=== PATIENT | female | born 1995 | race Caucasian/White ===

== ENCOUNTER → 2020-07-12 16:43 | Outpatient (BNVA) | payer MEDICAID, SELFPAY | PROVIDERS: Family Provider Nurse Practitioner Family; PCP Nurse Practitioner Family; Visit Provider Nurse Practitioner Family | DX: Z11.3 Encounter for screening for infections with a predominantly sexual mode of transmission (principal); Z20.2 Contact with and (suspected) exposure to infections with a predominantly sexual mode of transmission; Z68.25 Body mass index [BMI] 25.0-25.9, adult; Z71.89 Other specified counseling | CPT/HCPCS: 86592; 87086; 87491; 87591; 87661; 87806 ==

== ENCOUNTER → 2020-11-13 12:47 | Outpatient (BNVA) | payer MEDICAID, SELFPAY | PROVIDERS: Family Provider Nurse Practitioner Family; PCP Nurse Practitioner Family; Visit Provider Nurse Practitioner | DX: R05 Cough (principal); J06.9 Acute upper respiratory infection, unspecified | CPT/HCPCS: 87400 ==

== ENCOUNTER 2021-09-21 11:45 | Emergency (ER) | payer OTHER, SELFPAY ==
--- NOTE | 2021-09-21 11:56 | US_ITS ---
WS: [id number] TRANSVAGINAL PELVIC ULTRASOUND HISTORY: eval for miscarriage COMPARISON: None available. Uterus: Uterus is anteverted and normal size measuring 8.3 x 4.2 x 5.1 cm. No fibroid or mass. Endometrium: 0.9 cm. Normal endometrium. Right ovary: 4.4 cm x 3.2 cm x 2.1 cm. Normal size and vascularity, no cystic or solid masses. Domina nt follicle. No adnexal mass. Left ovary: 2.8 cm x 1.3 cm x 1.9 cm. Normal size and vascularity, no cystic or solid masses. No free fluid. US/US transvaginal [id number] IMPRESSION: 1. No intrauterine gestation. No endometrial thickening. 2. No free fluid or adnexal masses. 3. If there is a positive beta hCG serial follow-up beta hCG levels are recomm ended and ultrasound if clinically thought necessary.
[2021-09-21 11:58] VITALS: BP 119/74; PULSE 82; RESP 16; TEMP 36.8; O2SAT 100
[2021-09-21 12:38] LABS: Basophils % 0.3 %; Eosinophils # 0.1 10^3/uL (0.0-0.8); Eosinophils % 1.2 %; Hematocrit 43.3 % (37.0-47.0); Hemoglobin 14.3 g/dL (11.5-15.3); Lymphocytes # 1.8 10^3/uL (0.8-4.8); Lymphocytes % 29.7 %; Mean Corpuscular Volume 93.7 fl (81-99); Mean Platelet Volume 11.3 fL (7.4-10.4); Monocytes # 0.4 10^3/uL (0.2-0.9); Neutrophils % 61.5 %; Nucleated Red Blood Cells % 0 %; Platelet Count 239 10^3/cmm (130-400); Red Blood Count 4.62 10^6/uL (4.1-5.3)
--- NOTE | 2021-09-21 12:59 | ED_ITS ---
HPI - General Adult General: Chief complaint: Vaginal Bleeding Stated complaint: 6 WKS PREG, THINKS HAVING MISCARRIAGE Time Seen by Provider: 09/21/21 12:05 History of Present Illness: HPI narrative: Patient is a 25-year-old female with G3, P2 at 6w1d by LMP presenting to the emergency room with 2 days of vaginal spotting. Patient denies heavy bleeding. Patient states that she has not had any pelvic cramps. Denies any passage of clots or gush of fluid. Patient denies any regular contraction, urinary symptoms, nausea vomiting, abdominal pain. She is has yet to establish care with Dr. Miranda but because of the bleeding, decided come to the emergency room. Denies any chest pain, shortness breath palpitation, fever/chills, headache or focal neurological deficits. Onset:2 days ago Duration:2 days Location:home Severity:moderate Review of Systems Narrative: Constitutional: No fever, no chills. HEENT: No vision changes CV: No chest pain, no palpitations PULM: no cough, no dyspnea. GI: No abdominal pain, no N/V/D. : No dysuria, +vaginal bleeding MSKEL: No muscle pain SKIN: No new rashes, no lesions. NEURO: No headache, no focal weakness. HEME: No visible bruises PSYCH: Normal mood PFSH ED PFSH: Medical History (Updated 09/21/21 @ 13:38 by Javier Morillo MD) Seizure disorder Surgical History No pertinent past surgical history Family History (Updated 09/21/21 @ 07:47 by Raven Juarez) Family/Other Cancer Diabetes Stroke Denies family history of Colon cancer Ovarian cancer Heart disease Hypercholesteremia Breast cancer Hypertension Uterine cancer Thyroid disease Social History (Updated 09/21/21 @ 07:48 by Raven Juarez) Smoking and tobacco status: current every day smoker Second hand smoke exposure: Yes Alcohol intake: never Lives independently: Yes Marital status: History of recent travel: No Special tabitha needs: No Agree to transfusion: Yes Physical Exam Narrative: EXAM NARRATIVE: Head: Atraumatic Eyes: PERRL, conjunctiva without injection ENT: Mucous membrane moist NECK: Supple, ROM intact LUNGS: LCTAB, no crackles/rhonchi CV: RRR ABDOMEN: Soft, nontender in all quadrants EXTREMITY: Normal ROM SKIN: No rash or erythema NEURO: Awake and alert, no focal motor deficits PSYCH: Normal mood and affect : Exam supervised by _ External genitalia wnl. No erythema around cervical os, os closed, no discharge, no bleeding. No CMT, no adnexal tenderness. Course Vital Signs: Vital signs: Vital Signs Temperature 98.3 F 09/21/21 11:58 Pulse Rate 87 09/21/21 15:38 Respiratory Rate 16 09/21/21 15:38 Blood Pressure 118/76 09/21/21 15:38 Pulse Oximetry 99 09/21/21 15:38 MDM - General Adult MDM Narrative: Medical decision making narrative: Patient is presenting to the emergency room with new onset of vaginal bleeding x2 days. Exam, patient is hemodynamically stable. Pubic symptoms showing signs of brisk bleeding. Cervical os was not visualized. Patient appears to be stable today. Beta hCG of 111. US does not show any IUP. No signs of ectopic . On exam most consistent with possible incomplete/missed . This patient was seen the day prior to , and Dr. Miranda would not be in the office. Have given patient strict return precaution in 48 to 72 hours for repeat beta hCG check to ensure that her beta-hCG not going up. Disposition: Discharge. Patient counseled regarding diagnostic impression, treatment plan. Patient given ED strict return precautions to return for continuation, worsening, or development of new symptoms. Please come back in 24- 48 hrs. Lab Data: Labs: Lab Results 09/21/21 09/21/21 09/21/21 12:20 12:20 12:41 WBC 6.0 10^3/uL 10^3/ uL (4.0-10.0) RBC 4.62 10^6/uL 10^6 /uL (4.1-5.3) Hgb 14.3 g/dL g/dL (11.5-15.3) Hct 43.3 % % (37.0-47.0) MCV 93.7 fl fl (81-99) MCH 31.0 pg pg (28.0-34.0) MCHC 33.0 g/dL g/dL (30.0-36.0) RDW 12.0 % L % (12.1-15.1) Plt Count 239 10^3/cmm 10^3 /cmm (130-400) MPV 11.3 fL H fL (7.4-10.4) Neut % (Auto) 61.5 % % Lymph % (Auto) 29.7 % % [place] % (Auto) 7.0 % % Eos % (Auto) 1.2 % % Baso % (Auto) 0.3 % % Neut # (Auto) 3.70 10^3/uL 10^3 /uL (1.8-7.7) Lymph # (Auto) 1.8 10^3/uL 10^3/ uL (0.8-4.8) [place] # (Auto) 0.4 10^3/uL 10^3/ uL (0.2-0.9) Eos # (Auto) 0.1 10^3/uL 10^3/ uL (0.0-0.8) Baso # (Auto) 0.0 10^3/uL 10^3/ uL (0.0-0.1) Nucleated RBC % (a uto) 0 % % Nucleated RBCs # 0.0 /100WBC /100W BC Sodium 136 mmol/L mmol/L (136-145) Potassium 3.8 mmol/L mmol/L (3.5-5.1) Chloride 103 mmol/L mmol/L (98-107) Carbon Dioxide 21 mmol/L L mmol/ L (22-29) Anion Gap 15.8 (5-19) BUN 8 mg/dL mg/dL (6-20) Creatinine 0.6 mg/dL mg/dL (0.5-0.9) GFR Calculation 123.9 mL/min mL/m in (90-130) Glucose 87 mg/dL mg/dL (65-115) Calculated Osmolal ity 280 mOsm/kg L mOs m/kg (285-295) Calcium 8.8 mg/dL mg/dL (8.5-10.5) Total Bilirubin 0.2 mg/dL mg/dL (0.15-1.2) AST 14 U/L U/L (0-32) ALT 16 U/L U/L (0-33) Alkaline Phosphata se 75 IU/L IU/L (35-105) Total Protein 7.1 g/dL g/dL (6.6-8.7) Albumin 4.4 g/dL g/dL (3.5-5.2) Globulin 2.7 g/dL g/dL (1.3-4.6) HCG, Qual Ser , Blas i-Qnt 111.70 mIU/mL mIU /mL Urine Color Urine Appearance Urine pH Ur Specific Gravit y Urine Protein Urine Glucose (UA) Urine Ketones Urine Blood Urine Nitrate Urine Bilirubin Urine Urobilinogen Ur Leukocyte Eva ase Urine RBC Urine WBC Ur Squamous Epith Cells Amorphous Sediment Urine Bacteria Urine Mucus Blood Type A Positive Rho(D) Type Positive 09/21/21 09/21/21 14:05 14:05 WBC RBC Hgb Hct MCV MCH MCHC RDW Plt Count MPV Neut % (Auto) Lymph % (Auto) [place] % (Auto) Eos % (Auto) Baso % (Auto) Neut # (Auto) Lymph # (Auto) [place] # (Auto) Eos # (Auto) Baso # (Auto) Nucleated RBC % (a uto) Nucleated RBCs # Sodium Potassium Chloride Carbon Dioxide Anion Gap BUN Creatinine GFR Calculation Glucose Calculated Osmolal ity Calcium Total Bilirubin AST ALT Alkaline Phosphata se Total Protein Albumin Globulin HCG, Qual Positive H (Negative) Ser , Blas i-Qnt Urine Color [place] (Yellow) Urine Appearance Sl hazy (CLEAR) Urine pH 5 (5-7) Ur Specific Gravit y 1.010 (1.005-1.030) Urine Protein Neg (Negative) Urine Glucose (UA) Norm (Normal) Urine Ketones Negative (Negative) Urine Blood 3+ H (Negative) Urine Nitrate Negative (Negative) Urine Bilirubin Neg (Negative) Urine Urobilinogen Norm mg/dL mg/dL (Negative) Ur Leukocyte Eva ase Negative (Negative) Urine RBC 25-40 /hpf H /hpf (0-2) Urine WBC 0-4 /hpf H /hpf (0-5) Ur Squamous Epith Cells 5-10 /hpf H /hpf (0-5) Amorphous Sediment Not Reportable Urine Bacteria 1+ /hpf H /hpf (NONE) Urine Mucus Trace /hpf /hpf Blood Type Rho(D) Type Imaging Data^: Other Imaging: Radiologist's impression: [address] [id number] ReportSigned Patient: Max Tinsley #: [id number]: 1995Acct#:[id number]/Sex: 25 / FADM Date: 09/21/21Loc: ERRoom/Bed:Attending Dr: Ordering Provider/Ordering MD: Javier Morillo MD Date of Service: 09/21/21 Procedure(s): US transvaginal [id number] Accession Number(s): [id number] Report Number: [id number] WS: [id number] TRANSVAGINAL PELVIC ULTRASOUND HISTORY: eval for miscarriage COMPARISON: None available. Uterus: Uterus is anteverted and normal size measuring 8.3 x 4.2 x 5.1 cm. No fibroid or mass. Endometrium: 0.9 cm. Normal endometrium. Right ovary: 4.4 cm x 3.2 cm x 2.1 cm. Normal size and vascularity, no cystic or solid masses. Dominant follicle. No adnexal mass. Left ovary: 2.8 cm x 1.3 cm x 1.9 cm. Normal size and vascularity, no cystic or solid masses. No free fluid. US/US transvaginal [id number] IMPRESSION: 1. No intrauterine gestation. No endometrial thickening. 2. No free fluid or adnexal masses. 3. If there is a positive beta hCG serial follow-up beta hCG levels are recommended and ultrasound if clinically thought necessary. Dictated By:Manasa Morillo DOSigned By:Manasa Morillo DOSigned Date/Time:09/21/21 1555DD/ 52 Discharge Plan Discharge Patient Disposition: Home Clinical Impression: , threatened, Vaginal bleeding Condition: Stable Prescriptions: No Action KEPPRA PO RF: 0 fluticasone propionate 50 mcg/actuation spray,suspension 2 spray intranasal DAILY Qty: 9.9 RF: 0 Discharge Orders: Discharge ED (Routine); Ordered 09/21/21 Ordered By: Javier Morillo Referrals: Sarah Gonzáles APN [Primary Care Provider] - Discharge Diet: Advance as tolerated Discharge Activity: Resume usual activity Patient Instructions: Threatened Miscarriage (ED) Activity Restrictions/Additional Instructions: Please come back in 48-72 hrs to repeat the bHCG. Coding Level of Care Code ED Marketing Account Executive for Chg Honey
[2021-09-21 13:21] LABS: Alanine Aminotransferase 16 U/L (0-33); Albumin Level 4.4 g/dL (3.5-5.2); Alkaline Phosphatase 75 IU/L (35-105); Anion Gap 15.8 (5-19); Aspartate Amino Transferase 14 U/L (0-32); Blood Urea Nitrogen 8 mg/dL (6-20); Calcium 8.8 mg/dL (8.5-10.5); Carbon Dioxide 21 mmol/L (22-29); Chloride 103 mmol/L (98-107); Globulin 2.7 g/dL (1.3-4.6); Glomerular Filtration Rate 123.9 mL/min (90-130); Glucose 87 mg/dL (65-115); Osmolality Calculated 280 mOsm/kg (285-295); Potassium 3.8 mmol/L (3.5-5.1); Sodium 136 mmol/L (136-145); Total Bilirubin 0.2 mg/dL (0.15-1.2); Total Protein 7.1 g/dL (6.6-8.7)
[2021-09-21 14:09] VITALS: BP 110/69; PULSE 86; RESP 14; O2SAT 96
[2021-09-21 14:16] LABS: HCG Qualitative Urine. Positive (Negative)
[2021-09-21 14:39] LABS: Add Urine Microscopic? YES; Bilirubin Urine Neg (Negative); Blood Urine 3+ (Negative); Glucose Urine UA Norm (Normal); Ketones Urine Negative (Negative); Leukocyte Esterase Urine Negative (Negative); Nitrate Urine Negative (Negative); Protein Urine Neg (Negative); Urine Appearance SL Hazy (CLEAR); Urine Color Amber (Yellow); Urobilinogen Urine Norm (Negative); pH Urine 5 (5-7)
[2021-09-21 14:53] VITALS: BP 110/65; RESP 12
[2021-09-21 15:04] LABS: Add Urine Culture? Yes; Bacteria Urine 1+ /hpf; Mucus Urine TRACE /hpf; RBC Urine 25-40 /hpf (0-2); WBC Urine 0-4 /hpf (0-5)
[2021-09-21 15:38] VITALS: BP 118/76; PULSE 87; RESP 16; O2SAT 99
== END 2021-09-21 15:35 | disposition home or self-care (01) ==
PROVIDERS: Physician Assistant; Emergency Provider Emergency Medicine; PCP Nurse Practitioner Family
DX: O20.0 Threatened abortion (principal); N93.9 Abnormal uterine and vaginal bleeding, unspecified; F17.210 Nicotine dependence, cigarettes, uncomplicated; R56.9 Unspecified convulsions; Z3A.01 Less than 8 weeks gestation of pregnancy
CPT/HCPCS: 76830; 80053; 81001; 81025; 84702; 85025; 86900; 87086; 93976; 99283

== ENCOUNTER 2022-07-07 21:32 | Outpatient (CLI) | payer OTHER, SELFPAY ==
[2022-07-07] VITALS (7 sets, daily range): BP systolic 110–121; BP diastolic 56–72; PULSE 86–91; RESP 16; TEMP 36.1; BMI 26.6
--- NOTE | 2022-07-07 23:22 | P.TNLD_ITS ---
OB L&D Triage Visit Information: Date of evaluation: 07/07/22 Comments/Additional reason(s) for visit: Max is a 26-year-old with an IUP~24 weeks. She receives medical care in [facility] with her ambulance operations supervisor however plans to transfer care to OB providers here in [facility] because she did like to deliver at this hospital. She lives approximately 30 minutes from this location. Today she presented because she noticed increased discharge today. Describes discharge as yellow and creamy. She has no vaginal pruritus and she has not noticed any vaginal odor. She is sexually active and partners present. Denies vaginal bleeding, denies loss of fluid, denies uterine contractions, denies painful urination, denies headache, denies right upper quadrant pain, denies visual changes Evaluation: Cervical dilation (cm): 0 (Sterile spec exam: Thick closed cervix; negative pool; no blood in the vault, creamy odorless vaginal discharge, culture collected) Vital signs: Vital Signs - 24 hr 07/07/22 21:41 07/07/22 21:44 07/07/22 22:06 Temperature 97.0 F L Pulse Rate 90 91 Blood Pressure 110/57 119/56 07/07/22 22:26 07/07/22 22:46 Temperature Pulse Rate 86 88 Blood Pressure 121/57 116/72 Final Diagnosis Final Diagnosis (1) 24 weeks gestation of : Status: Acute Code(s): Z3A.24 - 24 weeks gestation of (2) Vaginal discharge during in second trimester: Plan: * Hospital to contact patient with vaginitis culture result after it is run tomorrow. * Will have [facility] EMPLOYMENT SERVICES DIRECTOR call the patient to establish care and obtain records on Sunday. * Discharge to home with ROM precautions, labor precautions, and preeclampsia precautions. Status: Acute Code(s): O26.892 - Other specified related conditions, second trimester; N89.8 - Other specified noninflammatory disorders of vagina Coding Level of Care Code Acute Experimental Display Builder for Chg Fwd Diagnoses 24 weeks gestation of Z3A.24 Vaginal discharge during in second trimester O26.892; N89.8
== END 2022-07-07 23:15 | disposition home or self-care (01) ==
LOC: OPOB 21:33 → OBGYN 21:37
PROVIDERS: PCP Nurse Practitioner Family; Visit Provider Obstetrics & Gynecology
DX: O26.892 Other specified pregnancy related conditions, second trimester (principal); N89.8 Other specified noninflammatory disorders of vagina; Z3A.24 24 weeks gestation of pregnancy
CPT/HCPCS: 87491; 87591; 87661; 99211

== ENCOUNTER 2022-07-27 21:02 | Emergency (ER) | payer BC, MEDICAID, SELFPAY ==
[2022-07-27 21:11] VITALS: BP 107/72; PULSE 92; RESP 16; TEMP 36.2; O2SAT 100
--- NOTE | 2022-07-27 21:18 | ED_ITS ---
HPI - Animal Bite General: Chief Complaint: Animal Bite Stated Complaint: Spider Bite Time Seen by Provider: 07/27/22 21:14 Source: patient Mode of arrival: ambulatory Limitations: no limitations History of Present Illness: 26-year-old female who states she had noticed a small abscess to her left ankle today she does have a 1 to 2 cm abscess to the left ankle states its painful denies any drainage has no redness no fever denies any worsening improving factors. Associated symptoms: Deny chills, fever(s) or headache(s) Review of Systems Const: Denies: fever(s), chills, body aches or change in appetite Eyes: Denies: blurry vision or eye discomfort ENMT: Denies: throat pain or dental pain Card: Denies: chest pain Resp: Denies: dyspnea GI: Denies: abdominal pain, nausea, vomiting or diarrhea : Denies: dysuria Musc: Denies: neck pain or back pain Skin/Breast: Denies: rash Neuro: Denies: headache(s) Psych: Denies: depression Carmine/Lymph: Denies: easy bruising All/Imm: Denies: urticaria PFSH ED PFSH: Medical History Seizure disorder Surgical History No pertinent past surgical history Family History Family/Other Cancer Diabetes Stroke Denies family history of Colon cancer Ovarian cancer Heart disease Hypercholesteremia Breast cancer Hypertension Uterine cancer Thyroid disease Social History Smoking and tobacco status: current every day smoker Second hand smoke exposure: Yes Alcohol intake: never Lives independently: Yes Marital status: History of recent travel: No Special tabitha needs: No Agree to transfusion: Yes Physical Exam Const: COMMON NORMALS: no acute distress, patient oriented x3 and healthy appearing HENMT: COMMON NORMALS: normocephalic HEAD & SCALP: normocephalic Eye: COMMON NORMALS: conjunctivae normal CONJUNCTIVA: Yes conjunctivae normal Neck/C-Spine: COMMON NORMALS: full ROM and supple Chest: COMMONS NORMALS: normal inspection of the chest Resp: COMMON NORMALS: normal respiratory effort Cardio: COMMON NORMALS: regular rate, regular rhythm and No murmurs present (Cardio) RATE: regular rate RHYTHM: regular rhythm GI: INSPECTION: Yes normal to inspection Extremity: COMMON NORMALS: full ROM Neuro: COMMON NORMALS: patient oriented x3, moves all extremities and no focal motor deficits Psych: COMMON NORMALS: mental status grossly normal, Normal thought process present and cooperative THOUGHT PROCESS: Normal thought process present Skin: NARRATIVE SKIN EXAM: 2 cm abscess to the left ankle no erythema Procedures Abscess I/D Site: lower extremity Side (if applicable): left Local Anesthetic: lidocaine 1% Amount of anesthesia used (mL): 3 Technique: incised with #11 blade Irrigation: No Packing used?: none Course Vital Signs: Vital signs: Vital Signs Temperature 97.2 F L 07/27/22 21:11 Pulse Rate 92 07/27/22 21:11 Respiratory Rate 16 07/27/22 21:11 Blood Pressure 107/72 07/27/22 21:11 Pulse Oximetry 100 07/27/22 21:11 Oxygen Delivery Me thod 07/27/22 21:11 MDM - Animal Bite Medical Decision Making Patient presents with a small abscess to her left ankle did incise and drainage she has no signs of cellulitis she does not require antibiotics at this point she has any worsening she is to follow-up with PCP return if worsening she understands agrees to plan. Discharge Plan Discharge Patient Disposition: Home Clinical Impression: Abscess Condition: Stable Prescriptions: No Action KEPPRA PO Prilosec OTC 1 tab PO PRN PRN (Reason: Heartburn) folic acid 1 tab PO DAILY Discharge Orders: Discharge ED (Routine); Ordered 07/27/22 Ordered By: Virgilio Estrada Referrals: Sarah Gonzáles APN [Primary Care Provider] - Discharge Diet: Advance as tolerated Discharge Activity: Resume usual activity Patient Instructions: Abscess (ED) Coding Level of Care Code ED Paint Roller Covermaker for Oliva Méndez
== END 2022-07-27 21:37 | disposition home or self-care (01) ==
PROVIDERS: Emergency Provider Emergency Medicine; PCP Nurse Practitioner Family
DX: L02.416 Cutaneous abscess of left lower limb (principal); F17.210 Nicotine dependence, cigarettes, uncomplicated
CPT/HCPCS: 10060; 99282

== ENCOUNTER 2022-07-31 22:16 | Emergency (ER) | payer BC, MEDICAID, SELFPAY ==
[2022-07-31 22:18] VITALS: BP 123/83; PULSE 83; RESP 16; TEMP 36.2; O2SAT 100
--- NOTE | 2022-07-31 22:23 | ED_ITS ---
HPI - Wound/Laceration General: Chief Complaint: Wound/Laceration Stated Complaint: Spider Bite Infected Time Seen by Provider: 07/31/22 22:23 History of Present Illness: 26-year-old female comes in today with complaints of tender wound to the left lower leg ankle area. Patient had a small abscess there that was drained 4 days ago. Patient reports increasing pain and discomfort to the wound starting yesterday. Patient is concerned the infection might have gotten worse. Patient appears nontoxic. Patient appears in mild pain. Review of Systems General: Reports: 10 or more systems reviewed and unremarkable except in HPI and below Card: Denies: chest pain Resp: Denies: dyspnea Musc: Denies: neck pain Skin/Breast: Reports: erythema PFSH ED PFSH: Medical History Seizure disorder Surgical History No pertinent past surgical history Family History Family/Other Cancer Diabetes Stroke Denies family history of Colon cancer Ovarian cancer Heart disease Hypercholesteremia Breast cancer Hypertension Uterine cancer Thyroid disease Social History Smoking and tobacco status: current every day smoker Second hand smoke exposure: Yes Alcohol intake: never Lives independently: Yes Marital status: History of recent travel: No Special tabitha needs: No Agree to transfusion: Yes Physical Exam Const: COMMON NORMALS: alert HENMT: COMMON NORMALS: normocephalic HEAD & SCALP: normocephalic Neck/C-Spine: COMMON NORMALS: full ROM Resp: COMMON NORMALS: normal respiratory effort Cardio: COMMON NORMALS: regular rate RATE: regular rate Extremity: LEFT LOWER EXTREMITY: Yes lower leg (Crusted lesion with 2 cm surrounding erythema and induration.) Left lower leg: Yes inspection, Yes palpation and Yes neurovascular exam Neuro: SENSORIUM/ORIENTATION: Yes alert Skin: LESIONS: lesion noted (Left lower leg/ankle area) Course Vital Signs: Vital signs: Vital Signs Temperature 97.2 F L 07/31/22 22:18 Pulse Rate 83 07/31/22 22:18 Respiratory Rate 16 07/31/22 22:18 Blood Pressure 123/83 07/31/22 22:18 Pulse Oximetry 100 07/31/22 22:18 Oxygen Delivery Me thod 07/31/22 22:18 MDM - Wound/Laceration Medical Decision Making 26-year-old female comes in today with a wound to the left lower leg that is worsening over the last 24 hours. On exam patient has a crusted lesion with 2 cm surrounding erythema and induration. Differential diagnosis includes but not limited to wound infection, abscess, cellulitis. Patient been treated for an abscess about 4 days ago and had reported improving symptoms until the last 24 hours. Believe patient probably has a little secondary wound infection. Will cover with mupirocin ointment and the clindamycin. Patient reported understanding and agreed to plan. Discharge Plan Discharge Patient Disposition: Home Clinical Impression: Infected insect bite of ankle Qualifiers: Encounter type: subsequent encounter Laterality: left Qualified Code(s): S90.562D - Insect bite (nonvenomous), left ankle, subsequent encounter Condition: Stable Prescriptions: New clindamycin HCl 300 mg capsule 300 mg PO BID 7 Days Qty: 14 0RF No Action KEPPRA PO Prilosec OTC 1 tab PO PRN PRN (Reason: Heartburn) folic acid 1 tab PO DAILY Discharge Orders: Discharge ED (Routine); Ordered 07/31/22 Ordered By: Tom Puentes Referrals: Sarah Gonzáles APN [Primary Care Provider] - Discharge Diet: Usual diet Discharge Activity: Increase activity as tolerated Patient Instructions: Wound Infection (ED) Activity Restrictions/Additional Instructions: Clean wound gently 2 times a day with mild soap and water and cover with antibiotic ointment. Take oral antibiotics twice a day for the next 7 days. Elevate extremity is much as possible. Drink plenty of water with antibiotic. Follow-up with primary care in 2 to 3 days for recheck. Return to ER for worsening symptoms such as fever greater than 100.4, inability to hold fluids or medication down, or new concerns. Coding Level of Care Code ED Health Services Administrator for Oliva Méndez
[2022-07-31] MEDS: clindamycin 150 mg Capsule 300 MG PO (22:43)
[2022-07-31] MEDS: mupirocin oint 22 gm 1 APPLIC TOPICAL (22:43)
== END 2022-07-31 22:50 | disposition home or self-care (01) ==
PROVIDERS: Emergency Provider Nurse Practitioner Family; PCP Nurse Practitioner Family
DX: S90.562A Insect bite (nonvenomous), left ankle, initial encounter (principal); F17.200 Nicotine dependence, unspecified, uncomplicated; W57.XXXA Bitten or stung by nonvenomous insect and other nonvenomous arthropods, initial encounter
CPT/HCPCS: 99283

== ENCOUNTER 2022-08-24 15:54 | Outpatient (CLI) | payer BC, MEDICAID, SELFPAY ==
[2022-08-24 16:06] VITALS: RESP 17
[2022-08-24 16:13] VITALS: BP 118/58; PULSE 107
[2022-08-24 17:48] LABS: Urine Appearance Clear (CLEAR); Urine Color Yellow (Yellow)
[2022-08-24 17:49] LABS: Bilirubin Urine Neg (Negative); Blood Urine Neg (Negative); Glucose Urine UA Norm (Normal); Ketones Urine 1+ (Negative); Leukocyte Esterase Urine 2+ (Negative); Nitrate Urine Negative (Negative); Protein Urine Neg (Negative); Sulfosalicylic Acid Urine Negative (Negative); Urobilinogen Urine Norm (Negative); pH Urine 8 (5-7)
[2022-08-24 17:52] LABS: Add Urine Culture? No; Bacteria Urine TRACE /hpf; Squamous Epithelial Cell Urine 0-4 /hpf (0-5); WBC Urine 0-4 /hpf (0-5)
== END 2022-08-24 18:20 | disposition home or self-care (01) ==
LOC: OPOB 15:54 → OBGYN 15:55
PROVIDERS: PCP Nurse Practitioner Family; Visit Provider Family Medicine
DX: O26.899 Other specified pregnancy related conditions, unspecified trimester (principal); Z3A.00 Weeks of gestation of pregnancy not specified; R10.9 Unspecified abdominal pain
CPT/HCPCS: 59025; 81001; 99211

== ENCOUNTER 2022-10-06 16:50 | Outpatient (CLI) | payer BC, MEDICAID, SELFPAY ==
[2022-10-06] VITALS (29 sets, daily range): BP systolic 103–120; BP diastolic 55–73; PULSE 81–117; RESP 16; O2SAT 97–99; BMI 21.8
--- NOTE | 2022-10-06 18:18 | USR_ITS ---
PROCEDURE INFORMATION: Exam: US Biophysical Profile Without Non-Stress Test Exam date and time: 10/06/2022 7:16 PM Age: 27 years old Clinical indication: Other: Failed nst; ; Additional info: Non-reassuring fhts TECHNIQUE: Imaging protocol: US biophysical profile without non-stress testing. COMPARISON: US transvaginal [id number] 09/21/2021 1:24 PM FINDINGS: heart rate: 120 bpm presentation: Cephalic Placenta: Posterior placenta without previa. Amniotic fluid: Amniotic fluid volume is normal. Amniotic fluid index: ELVIS is 20.9 cm. BIOPHYSICAL PROFILE: breathing movement (BPP): 0/2 body movement (BPP): 2/2 tone (BPP): 2/2 Amniotic fluid (BPP): 2/2 Biophysical profile score (BPP): 6/8 MATERNAL ANATOMY: Cervix: Cervical length measures 4 cm. US/US OB BPP wo NST [id number] IMPRESSION: Abnormal biophysical profile score of 6/8 with a 0/2 for breathing.
[2022-10-06 18:26] LABS: Amphetamines Screen Urine Negative (Negative); Barbiturates Screen Urine Negative (Negative); Benzodiazepines Screen Urine Negative (Negative); Cocaine Screen Urine Negative (Negative); Opiate Screen Urine Negative (Negative); PCP Screen Urine Negative (Negative); THC Screen Urine Negative (Negative)
[2022-10-06] MEDS: lactated ringers 1,000 ML 999 ML IV (18:30)
[2022-10-06 19:05] LABS: Bilirubin Urine Neg (Negative); Blood Urine Neg (Negative); Glucose Urine UA Norm (Normal); Ketones Urine 1+ (Negative); Nitrate Urine Negative (Negative); Protein Urine Neg (Negative); Urine Appearance SL Hazy (CLEAR); Urine Color Yellow (Yellow); pH Urine 6.5 (5-7)
[2022-10-06 19:06] LABS: Leukocyte Esterase Urine 2+ (Negative); Urobilinogen Urine Neg (Negative); WBC Urine 15-25 /hpf (0-5)
[2022-10-06 19:07] LABS: Add Urine Culture? No; Bacteria Urine 1+ /hpf; Mucus Urine 3+ /hpf; Squamous Epithelial Cell Urine 15-25 /hpf (0-5)
[2022-10-06 21:12] LABS: Rubella IgG 73.1 IU/mL (0.0-10.0)
[2022-10-06 21:19] LABS: Rapid Plasma Reagin Syphilis Nonreactive (Nonreactive)
[2022-10-06 21:27] LABS: Hepatitis B Surface Antigen Non-Reactive (Nonreactive)
[2022-10-06 23:23] LABS: HIV 1 & 2 Antibody Non-Reactive (Non-Reactiv); HIV 1 & 2 Antigen Non-Reactive (Non-Reactiv)
--- NOTE | 2022-10-07 09:15 | PM.OBGYDC ---
Discharge Providers TECHNICAL INSPECTOR Date of Discharge: 10/07/22 Attending Provider at Discharge: Kleber Patterson MD Primary Care Provider: Sarah Gonzáles APN Reason for Visit Reason for Visit: contractions Hospital Course Hospital Course This a 27 that presented to L&D for contractions. She was having contractions on the monitor every 3-6 minutes. Initial dilation was 2cm which was unchanged from her doctor's visit earlier in the day. FHT showed good variability but there was significant fluctuations concerning for decelerations. Fluids were given and there was some initial improvement. BPP was performed which demonstrated a very active fetus, good fluid, thick cervix, but only one breath was noted. After the BPP the baseline was noted to be around 130 with accelerations and there was no change in her cervix in 2 hours. In hindsight the fluctuations was likely accelerations secondary to smoking just prior to arrival and this was consistent with increased activity. Physical Exam Const: COMMON NORMALS: no acute distress and patient oriented x3 Chest: COMMONS NORMALS: normal inspection of the chest Resp: COMMON NORMALS: normal respiratory effort and No retractions Cardio: COMMON NORMALS: regular rate and regular rhythm RATE: regular rate RHYTHM: regular rhythm Extremity: COMMON NORMALS: no clubbing, cyanosis or edema Neuro: COMMON NORMALS: patient oriented x3 Psych: ATTITUDE: Yes agitated MOOD & AFFECT: Yes depressed mood and Yes Flat affect present Discharge Data Studies Completed and Pending Completed Studies During Hospitalization Category Date Time Status US OB BPP wo NST 65805 Stat Ultrasound 10/06/22 18:18 Completed Pending at discharge Category Date Time Status Chlamydia Trachomatis DORINA Stat Lab 10/06/22 17:15 Received Neisseria Gonorrhoeae DORINA Routine Lab 10/06/22 17:15 Received Radiology Impressions Obstetrics US/Biophysical Profile 10/06/22 18:18 IMPRESSION: Abnormal biophysical profile score of 6/8 with a 0/2 for breathing. ADDENDUM: 10/06/222033 THIS REPORT CONTAINS FINDINGS THAT MAY BE CRITICAL TO PATIENT CARE. The findings were verbally communicated via telephone conference with Kleber Patterson at 8:32 PM WEATHERIZATION AND HOUSING INSPECTOR on 10/06/2022. The findings were acknowledged and understood. Laboratory Results Urine Color Yellow (Yellow) 10/06/22 17:15 Urine Appearance Sl hazy (CLEAR) A 10/06/22 17:15 Urine pH 6.5 (5-7) 10/06/22 17:15 Ur Specific [place] 1.020 (1.005-1.030) 10/06/22 17:15 Urine Protein Neg (Negative) 10/06/22 17:15 Urine Glucose (UA) Norm (Normal) 10/06/22 17:15 Urine Ketones 1+ (Negative) H 10/06/22 17:15 Urine Blood Neg (Negative) 10/06/22 17:15 Urine Nitrate Negative (Negative) 10/06/22 17:15 Urine Bilirubin Neg (Negative) 10/06/22 17:15 Urine Urobilinogen Neg mg/dL (Negative) 10/06/22 17:15 Ur Leukocyte Esterase 2+ (Negative) H 10/06/22 17:15 Urine RBC None /hpf (0-2) 10/06/22 17:15 Urine WBC 15-25 /hpf (0-5) H 10/06/22 17:15 Ur Squamous Epith Cells 15-25 /hpf (0-5) H 10/06/22 17:15 Amorphous Sediment Not Reportable 10/06/22 17:15 Urine Bacteria 1+ /hpf (NONE) H 10/06/22 17:15 Urine Mucus 3+ /hpf 10/06/22 17:15 Urine Opiates Screen Negative ng/mL (Negative) 10/06/22 17:15 Ur Barbiturates Screen Negative ng/mL (Negative) 10/06/22 17:15 Ur Phencyclidine Scrn Negative ng/mL (Negative) 10/06/22 17:15 Ur Amphetamines Screen Negative ng/mL (Negative) 10/06/22 17:15 U Benzodiazepines Scrn Negative ng/mL (Negative) 10/06/22 17:15 Urine Cocaine Screen Negative ng/mL (Negative) 10/06/22 17:15 U Marijuana (THC) Screen Negative ng/mL (Negative) 10/06/22 17:15 RPR Nonreactive (Nonreactive) 10/06/22 18:25 Hep Bs Antigen Non-reactive (Nonreactive) 10/06/22 20:10 HIV 1&2 Ab & HIV 1 Ag Non-reactive (Non-Reactiv) 10/06/22 20:10 HIV 1&2 Antibody Non-reactive (Non-Reactiv) 10/06/22 20:10 Rubella IgG Antibody 73.1 IU/mL (0.0-10.0) H 10/06/22 18:25 Blood Type A Positive 10/06/22 18:25 Rho(D) Type Positive 10/06/22 18:25 Antibody Screen Negative 10/06/22 18:25 Vitals Last Vital Signs Pulse 87 10/06/22 20:03 Resp 16 10/06/22 17:41 BP 103/55 10/06/22 20:03 Pulse Ox 99 10/06/22 19:13 Discharge Plan Discharge Patient Disposition: Home Prescriptions: No Action KEPPRA PO Prilosec OTC 1 tab PO PRN PRN (Reason: Heartburn) folic acid 1 tab PO DAILY Discharge Orders: Discharge Order (Routine); Ordered 10/06/22 Ordered By: Kleber Patterson Diet: Usual diet Activity: Resume usual activity Patient Instructions: Preeclampsia During (DC), at 35 to 38 Weeks (DC), Kick Counts in (DC), Early Labor Signs (DC), OB Undelivered Discharge Activity Restrictions/Additional Instructions: Follow up with OB physician, Dr. Delcid in [place] at next scheduled appointment. Discharge Date/Time: 10/06/22 20:26 Discharge Attestations TECHNICAL INSPECTOR Time Spent in Discharge Care*: greater than 30 min Coding Level of Care Code Acute Carriage Dogger for Oliva Méndez
== END 2022-10-06 20:26 | disposition home or self-care (01) ==
LOC: OPOB 17:05 → OBGYN 17:06
PROVIDERS: PCP Nurse Practitioner Family; Visit Provider Family Medicine
DX: O47.9 False labor, unspecified (principal); Z3A.00 Weeks of gestation of pregnancy not specified; R10.9 Unspecified abdominal pain
CPT/HCPCS: 36415; 59025; 76819; 80306; 81001; 86592; 86762; 86850; 86900; 87340; 87491; 87591; 87806; 99211; J7120

== ENCOUNTER 2022-10-10 17:03 | Outpatient (CLI) | payer BC, MEDICAID, SELFPAY ==
[2022-10-10 17:17] VITALS: TEMP 36.1
[2022-10-10 17:18] VITALS: BP 129/56; PULSE 97
[2022-10-10 17:35] VITALS: RESP 16; BMI 28.9
[2022-10-10 17:37] VITALS: BP 110/62; PULSE 116
[2022-10-10 17:47] LABS: Nitrazine Paper, PH Negative
[2022-10-10 17:52] VITALS: BP 105/58; PULSE 89
== END 2022-10-10 18:03 | disposition home or self-care (01) ==
LOC: OPOB 17:08 → OBGYN 17:09
PROVIDERS: PCP Nurse Practitioner Family; Visit Provider Obstetrics & Gynecology
DX: O26.899 Other specified pregnancy related conditions, unspecified trimester (principal); Z3A.00 Weeks of gestation of pregnancy not specified; N89.8 Other specified noninflammatory disorders of vagina
CPT/HCPCS: 59025; 83986; 99211

== ENCOUNTER 2022-10-11 15:32 | Inpatient (IN) | payer BC, MEDICAID, SELFPAY ==
[2022-10-11] VITALS (45 sets, daily range): BP systolic 96–144; BP diastolic 51–86; PULSE 73–122; RESP 16; TEMP 36.1–36.4; O2SAT 98–100; BMI 28.9
[2022-10-11 14:54] LABS: Nitrazine Paper, PH Inconclusive
[2022-10-11 15:15] LABS: Actim Prom Positive
[2022-10-11 16:25] LABS: Basophils % 0.2 %; Eosinophils % 0.3 %; Hematocrit 39.5 % (37.0-47.0); Hemoglobin 12.8 g/dL (11.5-15.3); Lymphocytes # 2.2 10^3/uL (0.8-4.8); Lymphocytes % 18.5 %; Mean Corpuscular HGB Conc 32.4 g/dL (30.0-36.0); Mean Corpuscular Hemoglobin 30.5 pg (28.0-34.0); Mean Corpuscular Volume 94.3 fl (81-99); Mean Platelet Volume 12.3 fL (7.4-10.4); Monocytes # 0.7 10^3/uL (0.2-0.9); Neutrophils # 8.75 10^3/uL (1.8-7.7); Neutrophils % 74.2 %; Nucleated Red Blood Cells % 0 %; Platelet Count 218 10^3/cmm (130-400); Red Blood Count 4.19 10^6/uL (4.1-5.3); Red Cell Distribution Width 16.1 % (12.1-15.1); White Blood Count 11.8 10^3/uL (4.0-10.0)
[2022-10-11] MEDS: ceFAZolin 2,000 MG in sodium chloride 0.9% (plus) 50 ML 100 MG IV (16:30)
[2022-10-11] MEDS: dextrose 5%-lactated ringers 1,000 ML 125 ML IV (16:30)
[2022-10-11 16:45] LABS: Amphetamines Screen Urine Negative (Negative); Barbiturates Screen Urine Negative (Negative); Benzodiazepines Screen Urine Negative (Negative); Cocaine Screen Urine Negative (Negative); Opiate Screen Urine Negative (Negative); PCP Screen Urine Negative (Negative); THC Screen Urine Negative (Negative)
[2022-10-11] MEDS: oxytocin 30 UNIT/500 ML BAG IV (17:00)
--- NOTE | 2022-10-11 17:37 | P.HP_ITS ---
Providers/Chief Complaint Admitting Physician: Debo Montaño MD Primary Care Provider: Sarah Gonzáles APN Chief Complaint: loss of fluid History of Present Illness Max Tinsley is a 27 year old female G4, P3 at 38 weeks 3 days gestation by stated due date of 10/22, who presented to labor and delivery complaining of loss of fluid. The patient is a walk-in patient as she was receiving care in [facility]. She has had several triage visits here though and we have most of her labs, other than hepatitis C status. We do not have any ultrasounds. We have contacted the clinic in [facility] but have been unable to reach them. Her nitrazine was indeterminant, she had a very moist vaginal vault and a positive actimPROM. She states she began leaking around 10:00 last night. She did have her GBS done but it is unknown. She was anthony irregularly and complaining of pain 6 out of 10. Review of Systems General: Reports: Other (Positive movement, no vaginal bleeding, positive leaking clear fluid ) Const: Denies: fever(s) or chills ENMT: Denies: swelling of lips/tongue Card: Denies: chest pain or palpitations Resp: Denies: dyspnea GI: Reports: abdominal pain (contractions) Musc: Denies: limited range of motion or muscle weakness Skin/Breast: Denies: rash Neuro: Denies: headache(s), numbness in extremities, weakness in extremities or difficulty walking Endo: Denies: excessive sweating Carmine/Lymph: Denies: easy bruising or easy bleeding All/Imm: Denies: urticaria or throat swelling Medications/Allergies Home Medications Medication Instructions Recorded Confirmed Last Taken Type KEPPRA PO 11/13/20 11/13/20 07/07/22 10:00 History Prilosec OTC 1 tab PO PRN PRN Heartburn 07/07/22 07/07/22 07/07/22 10:00 History folic acid 1 tab PO DAILY 07/07/22 07/07/22 07/07/22 10:00 History Allergies Allergy/AdvReac Type Severity Reaction Status Date / Time amoxicillin Allergy ALGY-Hives Verified 07/31/22 22:21 penicillin G Allergy hives Verified 07/31/22 22:21 PFSH Acute PFSH: Medical History Seizure disorder Surgical History No pertinent past surgical history Family History Family/Other Cancer Diabetes Stroke Denies family history of Colon cancer Ovarian cancer Heart disease Hypercholesteremia Breast cancer Hypertension Uterine cancer Thyroid disease Social History Smoking and tobacco status: current every day smoker Second hand smoke exposure: Yes Alcohol intake: never Lives independently: Yes Marital status: History of recent travel: No Special tabitha needs: No Agree to transfusion: Yes Female Reproductive History: : 4 Other female reproductive history: She has had 3 prior vaginal deliveries. Her first delivery required a vacuum but her subsequent deliveries did not, they were normal spontaneous. She denies any known complications during this . She did continue to smoke about half a pack per day during the . 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 Vitals/I&O/Wt Last Vital Signs Temp 97.0 F L 10/11/22 15:16 Pulse 83 10/11/22 17:32 Resp 16 10/11/22 15:33 BP 96/55 10/11/22 17:32 O2 Del Method 10/11/22 15:43 Weight last 48 hrs Weight 78.925 kg Physical Exam Narrative: Alert and oriented, sitting up in bed, heart regular rate and rhythm, lungs clear to auscultation bilaterally, abdomen is gravid, soft, nontender, SVE cervix is 2 to 3 cm about 40% effaced very high with spontaneous rupture of 4 bag upon examination with copious clear fluid. Extremities have trace edema but no calf tenderness. Data 10/11/22 16:00 A&P Assessment and plan (1) with 38 completed weeks gestation: Unclear care we are trying to obtain records from [facility]. Most labs were done here and we will draw hepatitis C screen. (2) Spontaneous rupture of membranes: Patient had very moist vaginal vault with positive actim PROM. She reported beginning loss of fluid approximately 10 PM last evening. Her GBS is currently unknown to us and she is not in active labor - will likey have ROM>24 hrs, so I am going to go ahead and start GBS prophylaxis. She is penicillin allergic so we will start cefazolin. She denies any infants with GBS sepsis in the past. We will start augmenting her using Pitocin. Expectant management (3) Tobacco use during in third trimester: Attestations Medical Necessity Statement*: Expectant management of labor and delivery Coding Level of Care Code Acute Project Engineer Chemicals for g Fwd Diagnoses with 38 completed weeks gestation Z3A.38 Spontaneous rupture of membranes Tobacco use during in third trimester O99.333
[2022-10-11] MEDS: lactated ringers 1,000 ML 999 ML IV (18:00)
--- NOTE | 2022-10-11 19:16 | ANES.PREANE2 ---
Pre-Anesthetic Assessment Height/Weight: Height 1.65 m Weight 78.925 kg Temp Pulse Resp BP Pulse Ox O2 Del Method 97.5 F L 96 16 106/56 100 10/11/22 19:13 10/11/22 19:12 10/11/22 15:33 10/11/22 19:12 10/11/22 19:09 10/11/22 15:43 Epidural Familial anesthetic complications: none Was Beta Debi taken within 24 hours: N/A Was Clonidine taken within 24 hours: N/A Social No alcohol and No tobacco Exam alert, oriented x 3, clear to auscultation bilaterally and regular rate & rhythm Airway Mallampati: Class III Dentition: full Neuropsych Seizure (epilepsy) Anesthetic Plan ASA status: 3 Anesthesia: Regional (specify below) Risk of > 500 ml blood loss (7ml/kg in children): Yes, adequate IV access and fluids planned Medications/Allergies Home Medications Medication Instructions Recorded Confirmed Last Taken Type KEPPRA PO 11/13/20 11/13/20 07/07/22 10:00 History Prilosec OTC 1 tab PO PRN PRN Heartburn 07/07/22 07/07/22 07/07/22 10:00 History folic acid 1 tab PO DAILY 07/07/22 07/07/22 07/07/22 10:00 History Allergies Allergy/AdvReac Type Severity Reaction Status Date / Time amoxicillin Allergy ALGY-Hives Verified 07/31/22 22:21 penicillin G Allergy hives Verified 07/31/22 22:21 Current Medications Generic Name Dose Route Start Last Admin Trade Name Freq PRN Reason Stop Dose Admin Dextrose/Lactated Ringer's 1,000 mls @ 125 mls/hr 10/11/22 15:45 10/11/22 19:16 Dextrose 5%-Lactated Ringers IV 125 mls/hr .Q8H JOHANA Infusion Oxytocin 30 unit in 500 mls @ 1 mls/hr 10/11/22 16:30 10/11/22 17:45 Pitocin IV 7 milliunit/min .Q24H JOHANA 7 mls/hr Titration Protocol 1 MILLIUNIT/MIN Lactated Ringer's 1,000 mls @ 999 mls/hr 10/11/22 18:16 10/11/22 19:15 Lactated Ringers IV Infused .Q1H1M PRN Infusion See label comments PFSH Anesthesia Medical History Seizure disorder Surgical History No pertinent past surgical history Family History Family/Other Cancer Diabetes Stroke Denies family history of Colon cancer Ovarian cancer Heart disease Hypercholesteremia Breast cancer Hypertension Uterine cancer Thyroid disease Social History Smoking and tobacco status: current every day smoker Second hand smoke exposure: Yes Alcohol intake: never Lives independently: Yes Marital status: History of recent travel: No Special tabitha needs: No Agree to transfusion: Yes Female Reproductive History : 4 Data Anesthesia 10/11/22 16:00 Short CBC 10/11/22 Range/Units 16:00 WBC 11.8 H (4.0-10.0) 10^3/uL Hgb 12.8 (11.5-15.3) g/dL Hct 39.5 (37.0-47.0) % MCV 94.3 (81-99) fl Plt Count 218 (130-400) 10^3/cmm Neut % (Auto) 74.2 % Neut # (Auto) 8.75 H (1.8-7.7) 10^3/uL Cardiac Studies: No Data to Display Anesthesia Procedures Epidural Time Out Performed: Yes Consents Signed: Procedure Consent, NPO Consent and No Consent Needed Consent: requested by attending/covering physician, from patient, risks and benefits reviewed and patient agrees to proceed Lumbar Level: L3-L4 Epidural position: sitting Epidural procedure: sterile prep of area, 1% lidocaine to numb the area, 18 g needle, negative for paresthesia passed, neg for paresthesia, test dose given, 1.5% xylocaine 1:200k epi (5 ml), 0.2% Ropivacaine bolus ml, placed PCEA, no systemic response, sterile dressing applied, L.U.D. no apparent complications and 0.2% Ropiavacaine @ mls/hr (3 ml) Additional Comments: ALIZA at 5 cm, threaded to 11 cm
[2022-10-11 20:03] LABS: Hepatitis C Virus Antibody Non-Reactive (Nonreactive)
--- NOTE | 2022-10-11 23:41 | P.PCNOB_ITS ---
Delivery Note: Date of delivery: October 11, 2022 Procedure: Normal spontaneous vaginal delivery Estimated blood loss (mL): 100 Delivery: This is a 27-year-old G4 now P4 who presented to labor and delivery complaining of loss of fluid. She was 38 weeks 3 days gestation by her stated due date. She was a walk-in patient who was receiving care in [facility]. Her records are not currently available. She had a moist vaginal vault and was actimPROM positive. Her labor was augmented using Pitocin and she received an epidural for pain management. She had spontaneous rupture of membranes of a fore bag approximately 6-1/2 hours prior to delivery. She only had to push through 1 contraction and had a vaginal delivery of a viable female infant weight 3115 g, 6 pounds 14 ounces, Apgars 8 and 9 over an intact perineum. The infant was suctioned at delivery and placed on the mother's chest. The cord was clamped and cut. The placenta was delivered g rossly intact and normal to inspection. There were no lacerations. Mother and infant were doing well after delivery. Coding Level of Care Code Acute Biomedical Instrument Technician for Oliva Méndez
[2022-10-12] VITALS (13 sets, daily range): BP systolic 103–120; BP diastolic 55–75; PULSE 73–90; RESP 16; TEMP 36.6
[2022-10-12] MEDS: dextrose 5%-lactated ringers 1,000 ML 125 ML IV (00:21)
[2022-10-12] MEDS: TRAMadol 50 mg Tablet PO ×2 (03:01→18:02)
[2022-10-12] MEDS: benzocaine-menthol 78 gm Canister 1 SPRAY TOPICAL (06:55)
[2022-10-12] MEDS: lanolin oint 7 gm 1 APPLIC TOPICAL (06:56)
[2022-10-12] MEDS: prenatal vitamin Capsule 1 CAP PO (08:12)
[2022-10-12] MEDS: docusate sodium 100 mg Capsule PO ×2 (08:12→17:59)
[2022-10-12] MEDS: ibuprofen 800 mg tablet PO ×3 (08:13→20:41)
[2022-10-12 13:03] LABS: Hematocrit 39.1 % (37.0-47.0); Hemoglobin 12.5 g/dL (11.5-15.3); Mean Corpuscular Hemoglobin 30.4 pg (28.0-34.0); Mean Corpuscular Volume 95.1 fl (81-99); Mean Platelet Volume 12.1 fL (7.4-10.4); Platelet Count 208 10^3/cmm (130-400); Red Blood Count 4.11 10^6/uL (4.1-5.3); Red Cell Distribution Width 15.9 % (12.1-15.1); White Blood Count 12.2 10^3/uL (4.0-10.0)
--- NOTE | 2022-10-12 16:31 | PM.PN ---
Subjective Subjective: This is a 24-wqmn-uxbz-old G4 now P4 who is day 0-1. She is doing well. She is ambulating, tolerating a regular diet, does not complain of any pain and has average vaginal bleeding. Vitals/I&O/Wt Last Vital Signs Temp 97.9 F 10/12/22 08:04 Pulse 77 10/12/22 15:09 Resp 16 10/12/22 08:00 BP 113/55 10/12/22 15:09 Pulse Ox 98 10/11/22 19:39 O2 Del Method 10/11/22 15:43 10/12/22 10/12/22 10/12/22 06:59 14:59 22:59 Intake Total 660.167 / 1944.484 Output Total 1100 / 1100 Balance -439.833 / 844.484 Weight last 48 hrs Weight 78.925 kg Physical Exam Narrative: Alert and oriented, sitting up in bed, heart regular rate and rhythm, lungs clear to auscultation bilaterally, abdomen soft and nontender, fundus firm and U- 3, extremities have no edema and no calf tenderness alert and oriented, Urinary Catheter Management: Serna Latex: Cath Placed During This Visit: yes, but has since been removed by the nurse Reason for Continuing Indwelling Catheter: Decision to DC Catheter Urinary Catheter Date of Insertion: 10/11/22 Urinary Catheter Time of Insertion: 19:45 Date Urinary Catheter Removed: 10/11/22 Time Urinary Catheter Discontinued: 23:26 Data 10/12/22 12:48 A&P Assessment and plan (1) Normal spontaneous vaginal delivery: Doing well, likely discharge home tomorrow if still doing well. Attestations Medical Necessity Statement*: Routine care Coding Level of Care Code Acute Refinery Operator Polymerization Plant for Chg Fwd Diagnoses Normal spontaneous vaginal delivery O80
[2022-10-13 03:40] VITALS: BP 111/57; PULSE 72; TEMP 36.3
[2022-10-13] MEDS: TRAMadol 50 mg Tablet PO ×2 (03:43→08:02)
[2022-10-13 08:00] VITALS: RESP 15
[2022-10-13] MEDS: docusate sodium 100 mg Capsule PO (08:02)
[2022-10-13] MEDS: prenatal vitamin Capsule 1 CAP PO (08:02)
[2022-10-13] MEDS: ibuprofen 800 mg tablet PO (08:02)
[2022-10-13 09:48] VITALS: BP 108/51; PULSE 71; TEMP 36.3
--- NOTE | 2022-10-13 10:31 | PM.DCS ---
Discharge Providers Date of Admission: 10/11/22 15:32 Date of Discharge: October 13, 2022 Attending Provider at Admission: Debo Montaño MD Attending Provider at Discharge: Debo Montaño MD Primary Care Provider: Sarah Gonzáles APN Diagnoses at Discharge Discharge Diagnosis (1) Normal spontaneous vaginal delivery: Status: Acute Reason for Visit Reason for Visit: loss of fluid Hospital Course Hospital Course This is a 27-year-old G4 now P4 who was admitted for spontaneous rupture of membranes. Her labor was augmented using Pitocin. She had a normal spontaneous vaginal delivery of a viable female . She did well after delivery. Her bleeding was decreased, she had no pain and was comfortable with discharge home. Physical Exam Narrative: Alert and oriented, sitting up in bed, heart regular rate and rhythm, lungs clear to auscultation bilaterally, abdomen soft, nontender, extremities have trace edema but no calf tenderness. Urinary Catheter Management: Serna Latex: Cath Placed During This Visit: yes, but has since been removed by the nurse Reason for Continuing Indwelling Catheter: Decision to DC Catheter Urinary Catheter Date of Insertion: 10/11/22 Urinary Catheter Time of Insertion: 19:45 Date Urinary Catheter Removed: 10/11/22 Time Urinary Catheter Discontinued: 23:26 Discharge Data Studies Completed and Pending Laboratory Results WBC 12.2 10^3/uL (4.0-10.0) H 10/12/22 12:48 RBC 4.11 10^6/uL (4.1-5.3) 10/12/22 12:48 Hgb 12.5 g/dL (11.5-15.3) 10/12/22 12:48 Hct 39.1 % (37.0-47.0) 10/12/22 12:48 MCV 95.1 fl (81-99) 10/12/22 12:48 MCH 30.4 pg (28.0-34.0) 10/12/22 12:48 MCHC 32.0 g/dL (30.0-36.0) 10/12/22 12:48 RDW 15.9 % (12.1-15.1) H 10/12/22 12:48 Plt Count 208 10^3/cmm (130-400) 10/12/22 12:48 MPV 12.1 fL (7.4-10.4) H 10/12/22 12:48 Neut % (Auto) 74.2 % 10/11/22 16:00 Lymph % (Auto) 18.5 % 10/11/22 16:00 Bertie % (Auto) 6.0 % 10/11/22 16:00 Eos % (Auto) 0.3 % 10/11/22 16:00 Baso % (Auto) 0.2 % 10/11/22 16:00 Neut # (Auto) 8.75 10^3/uL (1.8-7.7) H 10/11/22 16:00 Lymph # (Auto) 2.2 10^3/uL (0.8-4.8) 10/11/22 16:00 Bertie # (Auto) 0.7 10^3/uL (0.2-0.9) 10/11/22 16:00 Eos # (Auto) 0.0 10^3/uL (0.0-0.8) 10/11/22 16:00 Baso # (Auto) 0.0 10^3/uL (0.0-0.1) 10/11/22 16:00 Nucleated RBC % (auto) 0 % 10/11/22 16:00 Nucleated RBCs # 0.0 /100WBC 10/11/22 16:00 Insulin-like GF I Positive 10/11/22 14:55 Urine Opiates Screen Negative ng/mL (Negative) 10/11/22 14:30 Ur Barbiturates Screen Negative ng/mL (Negative) 10/11/22 14:30 Ur Phencyclidine Scrn Negative ng/mL (Negative) 10/11/22 14:30 Ur Amphetamines Screen Negative ng/mL (Negative) 10/11/22 14:30 U Benzodiazepines Scrn Negative ng/mL (Negative) 10/11/22 14:30 Urine Cocaine Screen Negative ng/mL (Negative) 10/11/22 14:30 U Marijuana (THC) Screen Negative ng/mL (Negative) 10/11/22 14:30 Hepatitis C Antibody Non-reactive (Nonreactive) 10/11/22 18:05 Vitals Last Vital Signs Temp 97.3 F L 10/13/22 09:48 Pulse 71 10/13/22 09:48 Resp 15 10/13/22 08:00 BP 108/51 10/13/22 09:48 Pulse Ox 98 10/11/22 19:39 O2 Del Method 10/11/22 15:43 Discharge Plan Discharge Patient Disposition: Home Condition: Stable Prescriptions: Continued KEPPRA PO Prilosec OTC 1 tab PO PRN PRN (Reason: Heartburn) folic acid 1 tab PO DAILY Discharge Orders: Discharge Order (Routine); Ordered 10/13/22 Ordered By: Debo Montaño Referrals: Debo Montaño MD [Physician] - 1 month Discharge Diet: Usual diet Discharge Activity: Limit activity as instructed Patient Instructions: Opioid Safety Discharge Attestations Time Spent in Discharge Care*: less than 30 min Quality Metrics Clinical Quality Measures [ No reported AMI, CVA or VTE this stay] Coding Level of Care Code Acute Chg FW DC note Diagnoses Normal spontaneous vaginal delivery O80
[2022-10-13 11:19] VITALS: BP 132/78; PULSE 90
[2022-10-13 11:25] VITALS: BP 132/78; PULSE 90
== END 2022-10-13 11:25 | disposition home or self-care (01) | DRG 807 ==
LOC: OPOB 15:32 → OBGYN 15:32
PROVIDERS: Admitting Provider Family Medicine; PCP Nurse Practitioner Family; Visit Provider Family Medicine
DX: O42.02 Full-term premature rupture of membranes, onset of labor within 24 hours of rupture (principal); Z37.0 Single live birth; O99.334 Smoking (tobacco) complicating childbirth; F17.210 Nicotine dependence, cigarettes, uncomplicated; Z3A.38 38 weeks gestation of pregnancy
CPT/HCPCS: 36415; 51702; 59025; 59409; 80306; 83986; 84112; 85025; 85027; 86803; 99211; J0690; J2590; J2795; J7120; J7121

== ENCOUNTER 2024-03-01 16:06 | Emergency (ER) | payer BC, MEDICAID, SELFPAY ==
[2024-03-01 16:11] VITALS: BP 114/66; PULSE 102; RESP 17; TEMP 36.6; O2SAT 97; BMI 32.4
--- NOTE | 2024-03-01 16:43 | W.ED.HA ---
HPI - Headache General: Chief Complaint: Headache Stated Complaint: headache Time Seen by Provider: 03/01/24 16:33 History of Present Illness: 28-year-old female comes in today with migraine headache. Patient reports that this is usual for her headaches that she has except she was unable to control it with acetaminophen and ibuprofen at home. Patient does take Topamax routinely to help control the migraines and for epilepsy. Review of Systems General: Reports: 10 or more systems reviewed and unremarkable except in HPI and below Neuro: Reports: headache(s) PFSH ED PFSH: Medical History Seizure disorder Surgical History No pertinent past surgical history Family History Family/Other Cancer Diabetes Stroke Denies family history of Colon cancer Ovarian cancer Heart disease Hypercholesteremia Breast cancer Hypertension Uterine cancer Thyroid disease Social History (Updated 02/05/23 @ 09:28 by Erasmo Stevens) Substance/Drug Use: never Physical Exam Const: COMMON NORMALS: alert HENMT: COMMON NORMALS: normocephalic HEAD & SCALP: normocephalic MOUTH: Normal oral and palatal mucosa present Neck/C-Spine: COMMON NORMALS: full ROM Resp: COMMON NORMALS: normal respiratory effort Cardio: COMMON NORMALS: regular rate and regular rhythm RATE: regular rate RHYTHM: regular rhythm Back/Pelvis: COMMON NORMALS: thoracic and lumbar spine normal to inspection Extremity: COMMON NORMALS: normal to inspection Neuro: SENSORIUM/ORIENTATION: Yes alert Skin: COMMON NORMALS: turgor normal GENERAL SKIN EXAM: turgor normal Course Vital Signs: Vital signs: Vital Signs Temperature 98 F 03/01/24 16:11 Pulse Rate 102 H 03/01/24 16:11 Respiratory Rate 17 03/01/24 16:11 Blood Pressure 114/66 03/01/24 16:11 Pulse Oximetry 97 03/01/24 16:11 Oxygen Delivery Me thod Room Air 03/01/24 16:11 MDM - Headache Medical Decision Making 28-year-old female comes in today with complaints of headache. Patient has a history of migraines and reports that this is very similar to prior migraines. Patient moves all extremities well. Patient's speech is clear. No focal neural deficits are noted. Differential diagnosis includes tension headache, migraine headache, dehydration. Patient was treated with Reglan, Toradol, and dexamethasone along with 500 mL bolus of saline. Patient had resolution of headache. Patient was discharged home. No radiology studies performed this visit Discharge Plan Discharge Patient Disposition: Home Clinical Impression: Migraine Qualifiers: Migraine type: unspecified Status migrainosus presence: without status migrainosus Intractability: not intractable Qualified Code(s): G43.909 - Migraine, unspecified, not intractable, without status migrainosus Condition: Stable Prescriptions: No Action KEPPRA PO Prilosec OTC 1 tab PO PRN PRN (Reason: Heartburn) folic acid 1 tab PO DAILY Discharge Orders: Discharge ED (Routine); Ordered 03/01/24 Ordered By: Tom Puentes Referrals: Sarah Gonzáles APN [Primary Care Provider] - Discharge Diet: Usual diet Discharge Activity: Increase activity as tolerated Patient Instructions: Migraine Headache (ED) Activity Restrictions/Additional Instructions: Continue routine care and medications. Follow-up with primary care for further instructions. Return to ED for new concerns. Stand Alone Forms: Work/School Release Coding Level of Care Code ED Clothing Consultant for Oliva Méndez
[2024-03-01] MEDS: ketorolac 30 mg/mL INJ 15 MG IVP (17:04)
[2024-03-01] MEDS: metoclopramide 5 mg/mL SDV 2 mL 10 MG IVP (17:04)
[2024-03-01] MEDS: dexamethasone 10 mg/mL INJ IVP (17:04)
[2024-03-01] MEDS: sodium chloride 0.9% 500 ML 999 ML IV (17:05)
[2024-03-01 17:30] VITALS: BP 116/70; PULSE 91; RESP 16; TEMP 36.6; O2SAT 98
== END 2024-03-01 17:40 | disposition home or self-care (01) ==
PROVIDERS: Emergency Provider Nurse Practitioner Family; PCP Nurse Practitioner Family
DX: G43.909 Migraine, unspecified, not intractable, without status migrainosus (principal)
CPT/HCPCS: 96361; 96374; 96375; 99284; J1100; J1885; J2765; J7040

== ENCOUNTER 2024-05-13 19:37 | Observation (INO) | payer BC, MEDICAID, SELFPAY ==
[2024-05-13 19:38] VITALS: BP 122/58; PULSE 89; RESP 16; TEMP 36.9; O2SAT 100; BMI 33.3
[2024-05-13 20:02] VITALS: BP 118/76; PULSE 91; RESP 16; O2SAT 99
[2024-05-13 20:03] LABS: Basophils % 0.1 %; Eosinophils # 0.1 10^3/uL (0.0-0.8); Eosinophils % 0.5 %; Hematocrit 38.4 % (36-47); Lymphocytes # 1.4 10^3/uL (0.8-4.8); Lymphocytes % 10.9 %; Mean Corpuscular HGB Conc 32.3 g/dL (30-55); Mean Corpuscular Hemoglobin 29.7 pg (27-33); Mean Corpuscular Volume 92.1 fl (85-98); Mean Platelet Volume 11.3 fL (7.4-10.4); Monocytes # 0.4 10^3/uL (0.2-0.9); Monocytes % 3.1 %; Neutrophils # 11.32 10^3/uL (1.8-7.7); Neutrophils % 85.2 %; Nucleated Red Blood Cells % 0 %; Platelet Count 232 10^3/cmm (157-399); Red Blood Count 4.17 10^6/uL (3.85-5.65); Red Cell Distribution Width 12.4 % (12.1-15.1); White Blood Count 13.27 10^3/uL (3.29-11.43)
[2024-05-13 20:05] LABS: HCG Qualitative Urine. Negative (Negative)
[2024-05-13 20:10] LABS: Add Urine Microscopic? YES; Bilirubin Urine Neg (Negative); Blood Urine Neg (Negative); Glucose Urine UA Norm (Normal); Ketones Urine Negative (Negative); Leukocyte Esterase Urine 2+ (Negative); Nitrate Urine Negative (Negative); Protein Urine Neg (Negative); Urine Appearance Cloudy (CLEAR); Urine Color Yellow (Yellow); Urobilinogen Urine Norm (Negative); pH Urine 6 (5-7)
--- NOTE | 2024-05-13 20:11 | CTR_ITS ---
PROCEDURE INFORMATION: Exam: CT Abdomen And Pelvis With Contrast Exam date and time: 05/13/2024 8:25 PM Age: 28 years old Clinical indication: Abdominal pain; Localized; Right lower quadrant (rlq); Prior surgery; Surgery date: 6+ months; Surgery type: Tubal; Additional info: Rlq abd pain, n/v TECHNIQUE: Imaging protocol: Computed tomography of the abdomen and pelvis with contrast. Radiation optimization: All CT scans at this facility use at least one of these dose optimization techniques: automated exposure control; mA and/or kV adjustment per patient size (includes targeted exams where dose is matched to clinical indication); or iterative reconstruction. Contrast material: OMNI 350; Contrast volume: 91 ml; Contrast route: INTRAVENOUS (IV); COMPARISON: US OB BPP wo NST [id number] 10/06/2022 7:16 PM RADIATION DOSE METRICS: Total DLP (mGy-cm): 851 FINDINGS: Lungs: Lung bases are clear. No pleural effusion. Liver: Normal. No mass. Gallbladder and biliary ducts: Multiple gallstones are noted in the gallbladder but the gallbladder does not appear inflamed and demonstrates normal wall thickness. Pancreas: Normal. No ductal dilation. Spleen: Normal. No splenomegaly. Adrenal glands: Normal. No mass. Kidneys and ureters: Normal. No hydronephrosis. Stomach and bowel: Unremarkable. No obstruction. No mucosal thickening. Appendix: The appendix is mildly inflamed and measures 10 cm in diameter. There is no abscess. Intraperitoneal space: Unremarkable. No free air. No significant fluid collection. Vasculature: Unremarkable. No abdominal aortic aneurysm. Lymph nodes: Unremarkable. No enlarged lymph nodes. Urinary bladder: Unremarkable as visualized. Reproductive: Unremarkable as visualized. Bones/joints: Unremarkable. No acute fracture. Soft tissues: Unremarkable. CT/CT abdomen pelvis w con* [id number] IMPRESSION: 1. Findings suspicious for appendicitis. However, I am not certain of this. 2. Cholelithiasis
[2024-05-13 20:15] LABS: Add Urine Culture? No; Bacteria Urine 1+ /hpf; Mucus Urine 3+ /hpf; RBC Urine 0-4 /hpf (0-2)
[2024-05-13] MEDS: morphine 4 mg/mL SDV 1 mL IVP ×2 (20:15→21:32)
[2024-05-13] MEDS: sodium chloride 0.9% 1,000 ML 999 ML IV (20:16)
[2024-05-13 20:22] LABS: Alanine Aminotransferase 19 U/L (0-33); Alkaline Phosphatase 91 U/L (35-105); Anion Gap 13.4 (5-19); Aspartate Amino Transferase 19 U/L (0-32); Blood Urea Nitrogen 11 mg/dL (6-20); Calcium 8.8 mg/dL (8.5-10.5); Carbon Dioxide 20 mmol/L (22-29); Chloride 109 mmol/L (98-107); Creatinine Clr Calc Pharmacy 158.1067; Globulin 2.4 g/dL (1.3-4.6); Glomerular Filtration Rate 120.8 mL/min (90-130); Glucose 119 mg/dL (65-115); Lipase 22 U/L (13-60); Osmolality Calculated 289 mOsm/kg (285-295); Potassium 3.4 mmol/L (3.5-5.1); Sodium 139 mmol/L (136-145); Total Bilirubin 0.2 mg/dL (0.15-1.2); Total Protein 6.4 g/dL (6.6-8.7)
[2024-05-13] MEDS: iohexol 350 mg/mL 500 mL Btl (per mL) IV (20:27)
[2024-05-13 20:44] VITALS: BP 115/70; PULSE 94; RESP 16; O2SAT 100
--- NOTE | 2024-05-13 20:49 | ED_ITS ---
HPI - Abdominal Pain 2 General: Chief Complaint: Abdominal Pain Stated Complaint: rlq pain Time Seen by Provider: 05/13/24 19:39 History of Present Illness: Patient presents to the ER with sudden onset right lower quadrant abdominal pain starting at 1600 today. Patient states the pain radiates into the right flank. Denies any urinary symptoms, does admit to nausea vomiting at home. Patient is never had a pain like this before. Patient still has her appendix and gallbladder. The only surgery she had in her abdomen is a tubal ligation. Related Data: Date of Last Menstrual Period: 04/22/24 Review of Systems 2 General: Reports: 10 or more systems reviewed and unremarkable except in HPI and below PFSH ED 2 PFSH: Medical History Seizure disorder Surgical History No pertinent past surgical history Family History Family/Other Cancer Diabetes Stroke Denies family history of Colon cancer Ovarian cancer Heart disease Hypercholesteremia Breast cancer Hypertension Uterine cancer Thyroid disease Social History Substance/Drug Use: never Female Reproductive History: Date of last menstrual period: 04/22/24 Physical Exam 2 Const: COMMON NORMALS: no acute distress, average body habitus, patient oriented x3, no limitations, healthy appearing, alert and well nourished HENMT: COMMON NORMALS: normocephalic, atraumatic, hearing grossly normal bilaterally, external ears normal, Normal external nose present and moist oral mucous membranes HEAD & SCALP: normocephalic and atraumatic NOSE: Normal external nose present EXTERNAL EAR: Yes external ears normal Neck/C-Spine: COMMON NORMALS: no JVD Chest: COMMONS NORMALS: normal inspection of the chest and normal palpation of entire chest wall Resp: COMMON NORMALS: normal respiratory effort, No retractions, No use of accessory muscles and clear to auscultation bilaterally AUSCULTATION: clear to auscultation bilaterally Cardio: COMMON NORMALS: no JVD, regular rate, regular rhythm, S1 normal heart sound present, S2 normal heart sound present, No gallops present (Cardio), No clicks present (Cardio), No murmurs present (Cardio) and No rub (Cardio) R ATE: regular rate RHYTHM: regular rhythm HEART SOUNDS: S1 normal heart sound present and S2 normal heart sound present GI: COMMON NORMALS: Normal to inspection, nondistended, normoactive bowel sounds present, Soft to palpation, No hepatosplenomegaly present and no masses; negative for non-tender (Positive tenderness palpation right lower quadrant over McBurney's point, p) PALPATION: Yes Soft to palpation and Yes No hepatosplenomegaly present OTHER: Positive rebound and guarding. Neuro: COMMON NORMALS: patient oriented x3 SENSORIUM/ORIENTATION: Yes alert Course 2 Vital Signs: Vital signs: Vital Signs Temperature 98.4 F 05/13/24 19:38 Pulse Rate 94 05/13/24 20:44 Respiratory Rate 16 05/13/24 20:44 Blood Pressure 115/70 05/13/24 20:44 Pulse Oximetry 100 05/13/24 20:44 Oxygen Delivery Me thod Room Air 05/13/24 19:38 MDM - Abdominal Pain Medical Decision Making Who presents with right lower quadrant pain guarding and rebound, lab work showed mildly elevated white count of 13.2 otherwise unremarkable, CT scan did show suspicious for appendicitis with appendix mildly inflamed and 10 mm. These results was discussed with the patient and Dr. Obrien. We will admit the patient to Dr. Obrien keep her n.p.o. after midnight provide her with Zosyn and pain control. Differential Diagnosis Likely abdominal pain and acute appendicitis Medical Records I reviewed the patient's medical records. Lab Data I reviewed the patient's lab results. 05/13/24 19:52 05/13/24 19:52 Labs/Radiology: Radiology Impressions Abdomen/Pelvis CT 05/13/24 20:11 IMPRESSION: 1. Findings suspicious for appendicitis. However, I am not certain of this. 2. Cholelithiasis ADDENDUM: 05/13/242049 COMMENT: THIS REPORT CONTAINS FINDINGS THAT MAY BE CRITICAL TO PATIENT CARE. The exam findings were verbally communicated by me to Vincenzo Heath via telephone conference at 8:48 PM CDT on 05/13/2024. The findings were acknowledged and understood. Laboratory Results WBC 13.27 10^3/uL (3.29-11.43) H 05/13/24 19:52 RBC 4.17 10^6/uL (3.85-5.65) 05/13/24 19:52 Hgb 12.40 g/dL (11.27-16.99) 05/13/24 19:52 Hct 38.4 % (36-47) 05/13/24 19:52 MCV 92.1 fl (85-98) 05/13/24 19:52 MCH 29.7 pg (27-33) 05/13/24 19:52 MCHC 32.3 g/dL (30-55) 05/13/24 19:52 RDW 12.4 % (12.1-15.1) 05/13/24 19:52 Plt Count 232 10^3/cmm (157-399) 05/13/24 19:52 MPV 11.3 fL (7.4-10.4) H 05/13/24 19:52 Neut % (Auto) 85.2 % 05/13/24 19:52 Lymph % (Auto) 10.9 % 05/13/24 19:52 [place] % (Auto) 3.1 % 05/13/24 19:52 Eos % (Auto) 0.5 % 05/13/24 19:52 Baso % (Auto) 0.1 % 05/13/24 19:52 Neut # (Auto) 11.32 10^3/uL (1.8-7.7) H 05/13/24 19:52 Lymph # (Auto) 1.4 10^3/uL (0.8-4.8) 05/13/24 19:52 [place] # (Auto) 0.4 10^3/uL (0.2-0.9) 05/13/24 19:52 Eos # (Auto) 0.1 10^3/uL (0.0-0.8) 05/13/24 19:52 Baso # (Auto) 0.0 10^3/uL (0.0-0.1) 05/13/24 19:52 Nucleated RBC % (auto) 0 % 05/13/24 19:52 Nucleated RBCs # 0.0 /100WBC 05/13/24 19:52 Sodium 139 mmol/L (136-145) 05/13/24 19:52 Potassium 3.4 mmol/L (3.5-5.1) L 05/13/24 19:52 Chloride 109 mmol/L (98-107) H 05/13/24 19:52 Carbon Dioxide 20 mmol/L (22-29) L 05/13/24 19:52 Anion Gap 13.4 (5-19) 05/13/24 19:52 BUN 11 mg/dL (6-20) 05/13/24 19:52 Creatinine 0.6 mg/dL (0.5-0.9) 05/13/24 19:52 GFR Calculation 120.8 mL/min (90-130) 05/13/24 19:52 Glucose 119 mg/dL (65-115) H 05/13/24 19:52 Calculated Osmolality 289 mOsm/kg (285-295) 05/13/24 19:52 Calcium 8.8 mg/dL (8.5-10.5) 05/13/24 19:52 Magnesium 2.0 mg/dL (1.7-2.3) 05/13/24 19:52 Total Bilirubin 0.2 mg/dL (0.15-1.2) 05/13/24 19:52 AST 19 U/L (0-32) 05/13/24 19:52 ALT 19 U/L (0-33) 05/13/24 19:52 Alkaline Phosphatase 91 U/L (35-105) 05/13/24 19:52 Total Protein 6.4 g/dL (6.6-8.7) L 05/13/24 19:52 Albumin 4.0 g/dL (3.5-5.2) 05/13/24 19:52 Globulin 2.4 g/dL (1.3-4.6) 05/13/24 19:52 Lipase 22 U/L (13-60) 05/13/24 19:52 HCG, Qual Negative (Negative) 05/13/24 19:52 Urine Color Yellow (Yellow) 05/13/24 19:52 Urine Appearance Cloudy (CLEAR) A 05/13/24 19:52 Urine pH 6 (5-7) 05/13/24 19:52 Ur Specific [place] 1.020 (1.005-1.030) 05/13/24 19:52 Urine Protein Neg (Negative) 05/13/24 19:52 Urine Glucose (UA) Norm (Normal) 05/13/24 19:52 Urine Ketones Negative (Negative) 05/13/24 19:52 Urine Blood Neg (Negative) 05/13/24 19:52 Urine Nitrate Negative (Negative) 05/13/24 19:52 Urine Bilirubin Neg (Negative) 05/13/24 19:52 Urine Urobilinogen Norm mg/dL (Negative) 05/13/24 19:52 Ur Leukocyte Esterase 2+ (Negative) H 05/13/24 19:52 Urine RBC 0-4 /hpf (0-2) H 05/13/24 19:52 Urine WBC 10-15 /hpf (0-5) H 05/13/24 19:52 Ur Squamous Epith Cells 10-15 /hpf (0-5) H 05/13/24 19:52 Amorphous Sediment Not Reportable 05/13/24 19:52 Urine Bacteria 1+ /hpf (NONE) H 05/13/24 19:52 Urine Mucus 3+ /hpf 05/13/24 19:52 All radiology interpretation(s) finalized by discharge Discharge Plan Discharge Patient Disposition: Admitted As Inpatient Clinical Impression: Acute appendicitis Qualifiers: Acute appendicitis type: with localized peritonitis Appendicitis gangrene presence: without gangrene Appendicitis perforation presence: without perforation Appendicitis abscess presence: without abscess Qualified Code(s): K 35.30 - Acute appendicitis with localized peritonitis, without perforation or gangrene Condition: Stable Coding Level of Care Code ED Respiratory Care Faculty for Oliva Méndez
[2024-05-13] MEDS: ondansetron 2 mg/ML SDV 2 mL 4 MG IVP (21:31)
[2024-05-13] MEDS: piperacillin-tazobactam 3.375 GM in sodium chloride 0.9% (plus) 50 ML IV (21:32)
[2024-05-13 21:55] VITALS: BP 119/75; PULSE 88; RESP 17; TEMP 37.2; O2SAT 99
[2024-05-13 21:59] VITALS: BMI 34.9
[2024-05-14] VITALS (18 sets, daily range): BP systolic 89–118; BP diastolic 60–76; PULSE 67–97; RESP 13–19; TEMP 36.1–37.1; O2SAT 93–99
[2024-05-14] MEDS: HYDROmorphone 1 mg/mL INJ 1 mL IVP ×3 (00:02→10:00)
[2024-05-14] MEDS: sodium chloride 0.9% 1,000 ML 125 ML IV ×4 (00:05→19:55)
[2024-05-14] MEDS: efferdent effervescent 1 EACH DENTAL (00:24)
[2024-05-14] MEDS: levETIRAcetam 500 mg Tablet 1500 MG PO ×2 (08:13→20:24)
--- NOTE | 2024-05-14 09:47 | PC.CHAP ---
Pastoral Care Encounter/Spiritual Assessment Type of Contact [] Declined manager customs visit [] Patient/Family/Request visit [] Outpatient visit [] Follow-up visit [] Physician referral [] Code/Alert [x] Routine visit [] Staff referral [] Actively dying [] Patient sleeping [] Family support [] [] Out of room [] Palliative care [] [] Receiving care in room [] Pre-surgical visit [] Trauma [] Long length of stay [] ICU visit [] Other: Relational/Emotional Strength [x] Patient feels connected with others/family/visitors/staff [] Distress [] Loneliness/isolation [] Abandonment Spirituality of Patient [] Person of Mell [] Attends Congregation of their Mell [x] Believes in Prayer [] Reads Bible or Anglican materials [] There are Spiritual issues to be addressed M[employer] Inspector Interventions [x] Prayer [] Active listening [x] Non-anxious presence [] Spiritual/emotional support [] Crisis/trauma care [] Spiritual counseling [] Bereavement support [] Provided bereavement packet [] Provided Bible/devotional materials [] Provided toy/stuffed animal, coloring book to patient or family member [] Provided Communion [] Anointing/Lamar [] Salvation [x] Completed spiritual assessment [] Other: Impact on Illness or Injury [] Angry [] Fearful [] Anxious [] Often cries [] Exhaustion [] Unable to work [] Unable to attend rastafari [] Unable to walk/stand [] Unable to read [] Unable to drive [] Unable to eat/drink [] Unable to sleep [] Unable to be with family [] Patient intubated [] Other: Summary Time spent with patient 5 min
[2024-05-14] MEDS: ondansetron 2 mg/ML SDV 2 mL 4 MG IVP ×2 (09:55→22:16)
--- NOTE | 2024-05-14 13:48 | ANES.PREANE2 ---
Pre-Anesthetic Assessment Height/Weight: Height 1.65 m Weight 90.718 kg Temp Pulse Resp BP Pulse Ox O2 Del Method 98.5 F 67 17 107/70 96 Room Air 05/14/24 11:20 05/14/24 11:20 05/14/24 11:20 05/14/24 11:20 05/14/24 11:20 05/14/24 11:20 Operation Date: 05/14/24 14:05 Proposed Procedures p Laparoscopic Appendectomy(Not Applicable) - Bernabe Orbien DO Familial anesthetic complications: none Was Beta Debi taken within 24 hours: N/A Was Clonidine taken within 24 hours: N/A Last intake: Intake Last Liquid Date 05/14/24 Last Liquid Time 00:00 Last Solid Date 05/13/24 Last Solid Time 22:30 Social No alcohol and No tobacco Exam alert, oriented x 3, clear to auscultation bilaterally and regular rate & rhythm Airway Mallampati: Class II Dentition: other (no teeth) Neuropsych seizure Anesthetic Plan ASA status: 2 Anesthesia: General Risk of > 500 ml blood loss (7ml/kg in children): No Medications/Allergies Home Medications Medication Instructions Recorded Confirmed Last Taken Type KEPPRA 1,500 mg PO DAILY Seizures 11/13/20 05/13/24 05/13/24 History folic acid 1 tab PO DAILY 07/07/22 05/13/24 05/13/24 History topiramate 25 mg tablet 25 mg PO BEDTIME 05/13/24 05/13/24 05/12/24 History Allergies Allergy/AdvReac Type Severity Reaction Status Date / Time amoxicillin Allergy ALGY-Hives Verified 05/13/24 19:41 penicillin G Allergy hives Verified 05/13/24 19:41 Current Medications Generic Name Dose Route Start Last Admin Trade Name Freq PRN Reason Stop Dose Admin Denture Adhesive 1 each 05/14/24 00:12 05/14/24 00:24 Efferdent Effervescent DENTAL 1 each PRN PRN Administration BAD BREATH Hydromorphone HCl 1 mg 05/13/24 23:47 05/14/24 10:00 Hydromorphone 1 Mg/Ml Inj 1 Ml IVP 1 mg Q3H PRN Administration PAIN Sodium Chloride 1,000 mls @ 125 mls/hr 05/13/24 21:00 05/14/24 08:14 Sodium Chloride 0.9% IV 125 mls/hr .Q8H JOHANA Administration Levetiracetam 1,500 mg 05/14/24 09:00 05/14/24 08:13 Levetiracetam 500 Mg Tablet PO 1,500 mg BID JOHANA Administration Ondansetron HCl 4 mg 05/13/24 21:00 05/14/24 09:55 Ondansetron 2 Mg/Ml Sdv 2 Ml IVP 4 mg Q4H JOHANA Administration PFSH Anesthesia Medical History Seizure disorder Surgical History No pertinent past surgical history Family History Family/Other Cancer Diabetes Stroke Denies family history of Colon cancer Ovarian cancer Heart disease Hypercholesteremia Breast cancer Hypertension Uterine cancer Thyroid disease Social History Substance/Drug Use: never Female Reproductive History Date of last menstrual period: 04/22/24 Data Anesthesia 05/13/24 19:52 05/13/24 19:52 Short CBC 05/13/24 Range/Units 19:52 WBC 13.27 H (3.29-11.43) 10^3/uL Hgb 12.40 (11.27-16.99) g/dL Hct 38.4 (36-47) % MCV 92.1 (85-98) fl Plt Count 232 (157-399) 10^3/cmm Neut % (Auto) 85.2 % Neut # (Auto) 11.32 H (1.8-7.7) 10^3/uL BMP 05/13/24 19:52 Sodium 139 Potassium 3.4 L Chloride 109 H Carbon Dioxide 20 L BUN 11 Creatinine 0.6 Glucose 119 H Calcium 8.8 Liver Function 05/13/24 Range/Units 19:52 Total Bilirubin 0.2 (0.15-1.2) mg/dL AST 19 (0-32) U/L ALT 19 (0-33) U/L Alkaline Phosphatase 91 (35-105) U/L Albumin 4.0 (3.5-5.2) g/dL Urine 07/16/24 Range/Units 19:52 Urine Color Yellow (Yellow) Urine Appearance Cloudy A (CLEAR) Urine pH 6 (5-7) Ur Specific [place] 1.020 (1.005-1.030) Urine Protein Neg (Negative) Urine Glucose (UA) Norm (Normal) Urine Ketones Negative (Negative) Urine Nitrate Negative (Negative) Urine Bilirubin Neg (Negative) Ur Leukocyte Esterase 2+ H (Negative) Urine RBC 0-4 H (0-2) /hpf Urine WBC 10-15 H (0-5) /hpf Cardiac Studies: No Data to Display
--- NOTE | 2024-05-14 13:52 | P.HP_ITS ---
Providers/Chief Complaint 2 Admitting Physician: Bernabe Obrien DO Primary Care Provider: Sarah Gonzáles APN Chief Complaint: rlq pain History of Present Illness Max Tinsley is a 28 year old female presented to the hospital with a 1 day history of right lower quadrant abdominal pain nausea and emesis. She reports that the pain is located in her right lower quadrant and does not radiate. Palpation to make the pain worse. Nothing seems to make the pain better. She denies any hematemesis, diarrhea, constipation, hematochezia and/or melena. A CT of the abdomen pelvis showed early acute appendicitis Review of Systems 2 General: Reports: 10 or more systems reviewed and unremarkable except in HPI and below Medications/Allergies Home Medications Medication Instructions Recorded Confirmed Last Taken Type KEPPRA 1,500 mg PO DAILY Seizures 11/13/20 05/13/24 05/13/24 History folic acid 1 tab PO DAILY 07/07/22 05/13/24 05/13/24 History topiramate 25 mg tablet 25 mg PO BEDTIME 05/13/24 05/13/24 05/12/24 History Allergies Allergy/AdvReac Type Severity Reaction Status Date / Time amoxicillin Allergy ALGY-Hives Verified 05/13/24 19:41 penicillin G Allergy hives Verified 05/13/24 19:41 PFSH Acute 2 PFSH: Medical History Seizure disorder Surgical History No pertinent past surgical history Family History Family/Other Cancer Diabetes Stroke Denies family history of Colon cancer Ovarian cancer Heart disease Hypercholesteremia Breast cancer Hypertension Uterine cancer Thyroid disease Social History Substance/Drug Use: never Female Reproductive History: Date of last menstrual period: 04/22/24 Vitals/I&O/Wt Last Vital Signs Temp 98.5 F 05/14/24 11:20 Pulse 67 05/14/24 11:20 Resp 17 05/14/24 11:20 BP 107/70 05/14/24 11:20 Pulse Ox 96 05/14/24 11:20 O2 Del Method Room Air 05/14/24 11:20 05/13/24 05/14/24 05/14/24 22:59 06:59 14:59 Intake Total 1000 / 1000 50 / 1050 1000 / 1000 Balance 1000 / 1000 50 / 1050 1000 / 1000 Weight last 48 hrs Weight 200 lb Weight 210 lb Weight 200 lb Physical Exam 2 Narrative: General : Patient is well developed , no acute distress, oriented x3 Head : Normal cephalic, a-traumatic. Ears : Pinnae and external canal are normal. Hearing is normal. Eyes : PERRLA, Sclera and injection are normal. No conjunctival discharge. Nose : Mucous membranes are without erythema. Throat : buccal mucosa is normal, gums are without significant recession or hypertrophy. Lungs : Equal chest rise bilaterally, no use of accessory muscles, trachea is midline. Cor : Rate and rhythm are normal. Abdomen : Soft, ND, tender right lower quadrant, negative Rovsing's, no g/r/m Extremities : No edema, no cyanosis or clubbing, dorsalis pedis pulses are present bilaterally, non-tender to palpation of calves. Upper extremities are normal bilaterally. Back : non-tender to palpation, no CVA tenderness. Neuro : CN II - XII intact, Upper and lower extremities have equal and full strength Data 05/13/24 19:52 05/13/24 19:52 A&P Assessment and plan (1) Acute appendicitis: Qualifiers: Acute appendicitis type: with localized peritonitis Appendicitis abscess presence: without abscess Appendicitis gangrene presence: without gangrene Appendicitis perforation presence: without perforation Qualified Code(s): K35.30 - Acute appendicitis with localized peritonitis, without perforation or gangrene Plan Laparoscopic Appendectomy The risks and benefits of the procedure, including but not limited to, bleeding, infection, scar, numbness, pain, damage to surrounding structures, conversion to an open procedure, were explained to the patient. He is understanding of the risks and wishes to proceed. Attestations 2 Medical Necessity Statement*: Whether she goes home today or later depends on the findings during appendectomy Coding Level of Care Code 55458 Diagnoses Acute appendicitis K35.30 Acute appendicitis type: with localized peritonitis Appendicitis abscess presence: without abscess Appendicitis gangrene presence: without gangrene Appendicitis perforation presence: without perforation
[2024-05-14] MEDS: sodium chloride 0.9% 1,000 ML 30 ML IV (13:58)
[2024-05-14] MEDS: piperacillin-tazobactam 3.375 GM in sodium chloride 0.9% (plus) 50 ML IV (14:51)
[2024-05-14] MEDS: lidocaine-epi 2% PF 1:200,000 20 mL SDV XX (15:04)
--- NOTE | 2024-05-14 15:30 | P.OP_ITS ---
Operative Report Date of procedure: May 14, 2024 Pre-op diagnosis: Acute appendicitis Post-op diagnosis: same Procedure done: Laparoscopic appendectomy Implants: None Specimens removed/disposition: Appendix Surgeon: Bernabe Obrien DO Anesthesia: General and Local Estimated blood loss (mL): 5 Complications: None apparent Brief History: This is a very pleasant 28-year-old female presents to the hospital with abdominal pain. She is diagnosed with acute appendicitis. Laparoscopic appendectomy is indicated. The risk benefits were explained and documented. Procedure: Patient was wheeled into the operative room and placed on the OR table in a supine position. Abdomen was inspected prepped and draped in usual sterile fashion. Time-out was performed and all present were in agreement. A 15 blade scalp was used to make a stab incision in the left upper quadrant and intra- abdominal insufflation was achieved using a Veress needle. After localizing the tissue incisions were made and a 12 millimeter trocar was placed into the umbilicus as well as a 5mm in the right lower quadrant and a 5 mm in the left lower quadrant . The appendix was identified and was mildly inflamed. I used the Voyant to ligate the mesoappendix at the base. I then used 2 PDS endo-loops to snare the base of the appendix. I then used the Voyant to ligate the appendix distally. The appendix was removed from the abdomen using an Endo- Catch bag through the umbilical incision. I examined the abdomen and no further pathology was identified. Hemostasis was noted. I then closed the umbilical site with a Freddy-Andree and 0 Vicryl suture in a figure of 8 fashion. All ports removed. Skin was washed and dried. Incisions were closed with 4 O Vicryl in a subcuticular interrupted fashion. Skin glue was applied. Patient tolerated the procedure well.
--- NOTE | 2024-05-14 15:35 | PM.DCS ---
Discharge Providers Date of Admission: 05/13/24 21:18 Date of Discharge: May 14, 2024 Attending Provider at Admission: Bernabe Obrien DO Attending Provider at Discharge: Bernabe Obrien DO Primary Care Provider: Sarah Gonzáles APN Diagnoses at Discharge Discharge Diagnosis (1) Acute appendicitis: Status: Acute Qualifiers: Acute appendicitis type: with localized peritonitis Appendicitis abscess presence: without abscess Appendicitis gangrene presence: without gangrene Appendicitis perforation presence: without perforation Qualified Code(s): K35.30 - Acute appendicitis with localized peritonitis, without perforation or gangrene Reason for Visit Reason for Visit: rlq pain Hospital Course Hospital Course This very pleasant 28-year-old female presented to the hospital with abdominal pain. She was diagnosed with acute appendicitis. She underwent laparoscopic appendectomy and was discharged home in good condition with antibiotics and pain control. Physical Exam Narrative: General : Patient is well developed , no acute distress, oriented x3 Head : Normal cephalic, a-traumatic. Ears : Pinnae and external canal are normal. Hearing is normal. Eyes : PERRLA, Sclera and injection are normal. No conjunctival discharge. Nose : Mucous membranes are without erythema. Throat : buccal mucosa is normal, gums are without significant recession or hypertrophy. Lungs : Equal chest rise bilaterally, no use of accessory muscles, trachea is midline. Cor : Rate and rhythm are normal. Abdomen : Soft, ND, appropriately tender, no g/r/m Extremities : No edema, no cyanosis or clubbing, dorsalis pedis pulses are present bilaterally, non-tender to palpation of calves. Upper extremities are normal bilaterally. Back : non-tender to palpation, no CVA tenderness. Neuro : CN II - XII intact, Upper and lower extremities have equal and full strength Discharge Data Studies Completed and Pending Completed Studies During Hospitalization Category Date Time Status CT abdomen pelvis w con* [id number] Stat Cat Scan 05/13/24 20:11 Completed Pending at discharge Category Date Time Status Pathology: Surgical [PTH] Routine Pth 05/14/24 15:11 Ordered Radiology Impressions Abdomen/Pelvis CT 05/13/24 20:11 IMPRESSION: 1. Findings suspicious for appendicitis. However, I am not certain of this. 2. Cholelithiasis ADDENDUM: 05/13/242049 COMMENT: THIS REPORT CONTAINS FINDINGS THAT MAY BE CRITICAL TO PATIENT CARE. The exam findings were verbally communicated by me to Vincenzo Heath via telephone conference at 8:48 PM CDT on 05/13/2024. The findings were acknowledged and understood. Laboratory Results WBC 13.27 10^3/uL (3.29-11.43) H 05/13/24 19:52 RBC 4.17 10^6/uL (3.85-5.65) 05/13/24 19:52 Hgb 12.40 g/dL (11.27-16.99) 05/13/24 19:52 Hct 38.4 % (36-47) 05/13/24 19:52 MCV 92.1 fl (85-98) 05/13/24 19:52 MCH 29.7 pg (27-33) 05/13/24 19:52 MCHC 32.3 g/dL (30-55) 05/13/24 19:52 RDW 12.4 % (12.1-15.1) 05/13/24 19:52 Plt Count 232 10^3/cmm (157-399) 05/13/24 19:52 MPV 11.3 fL (7.4-10.4) H 05/13/24 19:52 Neut % (Auto) 85.2 % 05/13/24 19:52 Lymph % (Auto) 10.9 % 05/13/24 19:52 [place] % (Auto) 3.1 % 05/13/24 19:52 Eos % (Auto) 0.5 % 05/13/24 19:52 Baso % (Auto) 0.1 % 05/13/24 19:52 Neut # (Auto) 11.32 10^3/uL (1.8-7.7) H 05/13/24 19:52 Lymph # (Auto) 1.4 10^3/uL (0.8-4.8) 05/13/24 19:52 [place] # (Auto) 0.4 10^3/uL (0.2-0.9) 05/13/24 19:52 Eos # (Auto) 0.1 10^3/uL (0.0-0.8) 05/13/24 19:52 Baso # (Auto) 0.0 10^3/uL (0.0-0.1) 05/13/24 19:52 Nucleated RBC % (auto) 0 % 05/13/24 19:52 Nucleated RBCs # 0.0 /100WBC 05/13/24 19:52 Sodium 139 mmol/L (136-145) 05/13/24 19:52 Potassium 3.4 mmol/L (3.5-5.1) L 05/13/24 19:52 Chloride 109 mmol/L (98-107) H 05/13/24 19:52 Carbon Dioxide 20 mmol/L (22-29) L 05/13/24 19:52 Anion Gap 13.4 (5-19) 05/13/24 19:52 BUN 11 mg/dL (6-20) 05/13/24 19:52 Creatinine 0.6 mg/dL (0.5-0.9) 05/13/24 19:52 GFR Calculation 120.8 mL/min (90-130) 05/13/24 19:52 Glucose 119 mg/dL (65-115) H 05/13/24 19:52 Calculated Osmolality 289 mOsm/kg (285-295) 05/13/24 19:52 Calcium 8.8 mg/dL (8.5-10.5) 05/13/24 19:52 Magnesium 2.0 mg/dL (1.7-2.3) 05/13/24 19:52 Total Bilirubin 0.2 mg/dL (0.15-1.2) 05/13/24 19:52 AST 19 U/L (0-32) 05/13/24 19:52 ALT 19 U/L (0-33) 05/13/24 19:52 Alkaline Phosphatase 91 U/L (35-105) 05/13/24 19:52 Total Protein 6.4 g/dL (6.6-8.7) L 05/13/24 19:52 Albumin 4.0 g/dL (3.5-5.2) 05/13/24 19:52 Globulin 2.4 g/dL (1.3-4.6) 05/13/24 19:52 Lipase 22 U/L (13-60) 05/13/24 19:52 HCG, Qual Negative (Negative) 05/13/24 19:52 Urine Color Yellow (Yellow) 05/13/24 19:52 Urine Appearance Cloudy (CLEAR) A 05/13/24 19:52 Urine pH 6 (5-7) 05/13/24 19:52 Ur Specific [place] 1.020 (1.005-1.030) 05/13/24 19:52 Urine Protein Neg (Negative) 05/13/24 19:52 Urine Glucose (UA) Norm (Normal) 05/13/24 19:52 Urine Ketones Negative (Negative) 05/13/24 19:52 Urine Blood Neg (Negative) 05/13/24 19:52 Urine Nitrate Negative (Negative) 05/13/24 19:52 Urine Bilirubin Neg (Negative) 05/13/24 19:52 Urine Urobilinogen Norm mg/dL (Negative) 05/13/24 19:52 Ur Leukocyte Esterase 2+ (Negative) H 05/13/24 19:52 Urine RBC 0-4 /hpf (0-2) H 05/13/24 19:52 Urine WBC 10-15 /hpf (0-5) H 05/13/24 19:52 Ur Squamous Epith Cells 10-15 /hpf (0-5) H 05/13/24 19:52 Amorphous Sediment Not Reportable 05/13/24 19:52 Urine Bacteria 1+ /hpf (NONE) H 05/13/24 19:52 Urine Mucus 3+ /hpf 05/13/24 19:52 Procedures Performed Laparoscopic appendectomy Vitals Last Vital Signs Temp 98.5 F 05/14/24 11:20 Pulse 67 05/14/24 11:20 Resp 17 05/14/24 11:20 BP 107/70 05/14/24 11:20 Pulse Ox 96 05/14/24 11:20 O2 Del Method Room Air 05/14/24 11:20 Discharge Plan Discharge Patient Disposition: Home Condition: Stable Prescriptions: New hydrocodone-acetaminophen 7.5-325 mg tablet 1 tab PO Q6H PRN (Reason: pain) Qty: 20 0RF Colace 100 mg capsule 100 mg PO BID Qty: 14 0RF Miralax 17 gram/dose powder 17 g PO DAILY 7 Days Qty: 119 0RF amoxicillin-pot clavulanate 875-125 mg tablet 1 tab PO BID Qty: 20 0RF Continued KEPPRA 1,500 mg PO DAILY folic acid 1 tab PO DAILY topiramate 25 mg Tablet 25 mg PO BEDTIME Discharge Orders: Discharge Order (Routine); Ordered 05/14/24 Ordered By: Bernabe Obrien Referrals: Sarah Gonzáles APN [Primary Care Provider] - Bernabe Obrien DO [Physician] - 2 weeks Discharge Diet: Advance as tolerated Discharge Activity: Resume usual activity Patient Instructions: Acute Wound Care (DC), Opioid Safety, Post Anesthesia Care Activity Restrictions/Additional Instructions: Do not soak incisions underwater for 2 weeks. Shower regularly. Discharge Attestations Time Spent in Discharge Care*: less than 30 min Quality Metrics Clinical Quality Measures [ No reported AMI, CVA or VTE this stay] Coding Level of Care Code Acute Code for [facility] Fwd Diagnoses Acute appendicitis K35.30 Acute appendicitis type: with localized peritonitis Appendicitis abscess presence: without abscess Appendicitis gangrene presence: without gangrene Appendicitis perforation presence: without perforation
--- NOTE | 2024-05-14 16:10 | ANE.PACU2 ---
Inpatient post-anesthesia follow up: Airway intact: Yes Vital signs: Temperature 98.7 F Pulse Rate 71 Respiratory Rate 19 Blood Pressure 113/76 Pulse Oximetry 98 Oxygen Delivery Me thod Room Air Oxygen Flow Rate Fraction of Inspir ed Oxygen Hydration adequate: Yes Nausea and vomiting: No Pain level: 1 Mental status: Baseline
--- NOTE | 2024-05-14 16:30 | PC.NURSE ---
Pt pack to room from PACU. VSS. Family at bedside. Pt states that she does not want to be discharged tonight. Dr. Obrien advised. Awaiting reply.
[2024-05-14] MEDS: HYDROcodone-acetaminophen 7.5-325 mg Tablet 1 TAB PO ×2 (18:08→22:15)
[2024-05-15 00:29] VITALS: BP 99/67; PULSE 89; RESP 16; TEMP 36.6; O2SAT 96
[2024-05-15] MEDS: ondansetron 2 mg/ML SDV 2 mL 4 MG IVP (04:07)
[2024-05-15] MEDS: HYDROcodone-acetaminophen 7.5-325 mg Tablet 1 TAB PO (04:07)
[2024-05-15 04:39] VITALS: BP 120/71; PULSE 87; RESP 16; TEMP 36.9; O2SAT 96
[2024-05-15 07:26] VITALS: BP 107/59; PULSE 76; RESP 15; TEMP 36.7; O2SAT 91
--- NOTE | 2024-05-15 08:04 | P.PN_ITS ---
Subjective 2 Subjective: Patient seen and examined. She did not want to go home yesterday. Pain controlled today Vitals/I&O/Wt Last Vital Signs Temp 98.1 F 05/15/24 07:26 Pulse 76 05/15/24 07:26 Resp 15 05/15/24 07:26 BP 107/59 05/15/24 07:26 Pulse Ox 91 05/15/24 07:26 O2 Del Method Room Air 05/15/24 07:26 05/14/24 05/15/24 05/15/24 22:59 06:59 14:59 Intake Total 1638.75 / 2638.75 412.5 / 3051.25 Output Total Balance 1618.75 / 2618.75 412.5 / 3031.25 Weight last 48 hrs Weight 200 lb Weight 200 lb Weight 210 lb Weight 200 lb Physical Exam 2 Narrative: General: No acute distress, awake alert and oriented x 3 Abdomen: Soft, nondistended, appropriately tender Data 05/13/24 19:52 05/13/24 19:52 A&P Assessment and plan (1) Acute appendicitis: Qualifiers: Acute appendicitis type: with localized peritonitis Appendicitis abscess presence: without abscess Appendicitis gangrene presence: without gangrene Appendicitis perforation presence: without perforation Qualified Code(s): K35.30 - Acute appendicitis with localized peritonitis, without perforation or gangrene (2) Status post laparoscopic appendectomy: Plan Discharge summary already placed Attestations 2 Medical Necessity Statement*: Being discharged Coding Level of Care Code Acute Code for [facility] Diagnoses Acute appendicitis K35.30 Acute appendicitis type: with localized peritonitis Appendicitis abscess presence: without abscess Appendicitis gangrene presence: without gangrene Appendicitis perforation presence: without perforation Status post laparoscopic appendectomy Z90.49
[2024-05-15] MEDS: levETIRAcetam 500 mg Tablet 1500 MG PO (08:31)
[2024-05-15 09:43] VITALS: BP 107/59; PULSE 76; RESP 15; TEMP 36.7; O2SAT 91
== END 2024-05-15 09:35 | disposition home or self-care (01) ==
LOC: ER 21:00 → MEDSURG 05-14 07:18
PROVIDERS: Admitting Provider Surgery; Emergency Provider Emergency Medicine; PCP Nurse Practitioner Family; Visit Provider Surgery
PROC: 0DTJ4ZZ Resection of Appendix, Percutaneous Endoscopic Approach (ICD-10-PCS; CPT 44970; principal; 2024-05-14 13:55)
DX: K35.30 Acute appendicitis with localized peritonitis, without perforation or gangrene (principal)
CPT/HCPCS: 44970; 74177; 80053; 81001; 81025; 83690; 83735; 85025; 88304; 96365; 96375; 96376; 99285; G0378; J1170; J2250; J2270; J2405; J2543; J2704; J3010; J3490; J7030; Q9967

== ENCOUNTER → 2025-09-22 10:51 | Outpatient (BNVA) | payer SELFPAY | PROVIDERS: Visit Provider Nurse Practitioner Family | DX: R50.9 Fever, unspecified (principal) | CPT/HCPCS: 87426 ==